=== PATIENT | female | born 1975 | race Caucasian/White ===

== ENCOUNTER 2017-12-24 22:32 | Observation (INO) ==
--- NOTE | 2017-12-24 23:14 | Emergency Department Note ---
Disposition Clinical Impression: Abscess of skin or subcutaneous tissue Qualifiers: Site of cutaneous abscess: extremity Site of cutaneous abscess of extremity: axilla Laterality: left Qualified Code(s): L02.412 - Cutaneous abscess of left axilla Disposition: Admitted As Inpatient Condition: Undetermined Skin/Abscess/FB HPI Chief complaint: ED Skin/Abscess/Foreign Body Stated complaint: Abscess L Arm Pit Time Seen by Provider: 12/24/17 22:38 Source: patient Mode of arrival: ambulatory Limitations: no limitations Nursing Notes Reviewed: Yes Vital Signs Reviewed: Yes HPI Narrative: 42-year-old patient with a history of IV drug use, multiple MRSA abscesses presents to the emergency department for evaluation of abscesses to her left axillary area. Patient states the abscesses of been there for about a week. She denies fevers but states she does get chills and gets covered in sweat. She denies shortness of breath, dyspnea, nausea, vomiting, diarrhea, constipation. She has a history of abscesses and has been seen many times most recently she had one on her left inner thigh that she drained herself due to not having insurance and then had one appear on her left intergluteal fold that she also had to drain herself due to not having insurance. She complains that it she thinks she may have an infection up in her vaginal cavity as whenever she has sick she states the smell is horrific and smells like drainage that comes from her wounds. Patient longer uses IV drugs. Noncontributory medical history otherwise. Pt Subjective Complaint: abscess/boil Onset (ago): week(s) Tetanus Up to Date: unsure Location: LUE Severity: moderate Severity scale (1-10): 5 Quality: aching Consistency: intermittent Improves with: none Worsens with: none Context: IVDA (Prior history of) Associated symptoms: Reports: denies other symptoms Treatments prior to arrival: none Previous Rx's Medication Instructions Recorded Ciprofloxacin [Cipro] 500 mg PO BID #14 tablet 06/21/17 Fluconazole [Diflucan] 150 mg PO DAILY #1 tab 06/21/17 Ciprofloxacin [Cipro] 500 mg PO BID #14 tablet 10/26/17 HYDROcodone/Acet 5/325 mg [[place] 1 tab PO Q6H PRN #10 tab 10/26/17 5-325 mg] metroNIDAZOLE [Flagyl] 500 mg PO TID #21 tablet 10/26/17 Allergies Allergy/AdvReac Type Severity Reaction Status Date / Time No Known Allergies Allergy Verified 10/25/17 22:18 All systems ED: reviewed and negative except as stated. Review of Systems: As Per HPI Constitutional: Reports: as per HPI, chills. Denies: fever, weakness Cardiovascular: Denies: chest pain, palpitations, edema, syncope Respiratory: Denies: cough, dyspnea, wheezes, stridor Gastrointestinal: Denies: abdominal pain, nausea, vomiting, diarrhea Musculoskeletal: Denies: joint swelling Integumentary: Reports: other (Multiple abscesses in various stages of healing) Neurological: Denies: headache, weakness, numbness, paresthesias Past Medical History - Past Medical History Attestation: Yes The following information was validated with the patient. Source: patient Medical history: Reports: kidney stones, other (True MRSA cultures and abscesses ) Psychiatric history: Reports: no psych history [employer]TER history: Reports: bilateral tubal ligation - Social History Smoking Status: Current every day smoker Smokeless Tobacco Status: No Alcohol use: Reports: none Drug use: Reports: marijuana, IV Drug Use (History of) Physical Exam - General Limitations: no limitations General appearance: alert, in no apparent distress - Head Head exam: atraumatic, normocephalic, normal inspection - ENT ENT exam: normal exam, normal oropharynx, mucous membranes moist - Neck Neck exam: Present: normal inspection, full ROM, trachea midline - Chest Chest inspection: Present: normal inspection, symmetric chest wall rise - Respiratory Respiratory exam: Present: normal lung sounds bilaterally - Cardiovascular Cardiovascular exam: Present: regular rate, normal rhythm, normal heart sounds - Abdominal Exam Abdominal exam: Present: soft, Non-Tender. Absent: tenderness, distention, guarding, rebound, rigidity - Extremities Exam Extremities exam: Present: normal inspection, full ROM. Absent: tenderness, pedal edema - Expanded Lower Extremity Exam Gait: observed and normal - Back Exam Back exam: Present: normal inspection, full ROM. Absent: tenderness - Neurological Exam Neurological exam: Present: alert, oriented X3 - Psychiatric Psychiatric exam: Present: normal affect, normal mood - Skin Skin exam: Present: other (Left axilla with 4 varying size indurated erythemic areas without drainage. Areas are painful to touch, warm to touch. Right and her gluteal fold with healing abscess that is scabbed with small amount of induration and erythema. Multiple areas of lesions in various stages of healing.) Course Course Narrative: 42-year-old patient with a history of IV drug use, multiple MRSA abscesses presents to the emergency department for evaluation of abscesses to her left axillary area. Patient states the abscesses of been there for about a week. She denies fevers but states she does get chills and gets covered in sweat. She denies shortness of breath, dyspnea, nausea, vomiting, diarrhea, constipation. She has a history of abscesses and has been seen many times most recently she had one on her left inner thigh that she drained herself due to not having insurance and then had one appear on her left intergluteal fold that she also had to drain herself due to not having insurance. She complains that it she thinks she may have an infection up in her vaginal cavity as whenever she has sick she states the smell is horrific and smells like drainage that comes from her wounds. Patient longer uses IV drugs. Noncontributory medical history otherwise. Left axilla with 4 varying size indurated erythemic areas without drainage. Areas are painful to touch, warm to touch. Right and her gluteal fold with healing abscess that is scabbed with small amount of induration and erythema. Multiple areas of lesions in various stages of healing. Rest of exam unremarkable. We will obtain basic labs as well as blood cultures and plan to admit for IV antibiotics, would be unable to I&D abscesses at this time. She will need general surgery as involvement is so extensive. Concern is for widespread involvement and failure of outpatient treatment could lead to harm patient as well as worsening of condition. Patient agrees with plan of care. We will wait results of page hospitalist - Reevaluation(s) Reevaluation #1: Labs without evidence of leukocytosis or systemic involvement. CT scan of abscesses ordered frantically for admission to Hospital services and a general surgery consullt. We started empiric vancomycin after blood cultures were drawn. Spoke with hospitalist is agreeable to take the patient. [place] the patient at this time under the care of the hospitalist team Time: 01:30 Vital Signs Temperature 97.8 F 12/24/17 22:34 Pulse Rate 80 12/24/17 22:34 Respiratory Rate 16 12/24/17 22:34 Blood Pressure 144/96 12/24/17 22:34 O2 Sat by Pulse Oximetry 100 12/24/17 22:34 Temperature 97.8 F 12/24/17 22:34 Pulse Rate 80 12/24/17 22:34 Respiratory Rate 16 12/24/17 22:34 Blood Pressure 144/96 12/24/17 22:34 O2 Sat by Pulse Oximetry 100 12/24/17 22:34 Oxygen Delivery Oxygen Delivery Room Air Skin/Abscess/Foreign Body - Lab Data Result diagrams: 12/24/17 23:23 12/24/17 23:23 Lab Results 12/24/17 12/24/17 Range/Units 23:23 23:23 WBC 8.8 (4.3-11.1) K/mcL RBC 4.07 (3.82-4.97) M/mcL Hgb 13.3 (11.5-15.4) g/dL Hct 38.9 (35.3-44.9) % MCV 95.6 (83.0-100.0) fL MCH 32.7 (28.0-33.3) pg MCHC 34.2 (31.6-35.5) g/dL RDW 12.8 (11.5-14.5) % Plt Count 241 (140-400) K/mcL MPV 9.9 (9.4-12.4) fL Immature Gran % 0.2 (0-4) % Seg Neutrophils % 57.9 % Lymphocytes % 30.6 % Monocytes % 10.2 % Eosinophils % 0.8 % Basophils % 0.3 % Neutrophils # 5.1 (1.6-8.9) K/mcL Lymphocytes # 2.7 (0.6-4.6) K/mcL Monocytes # 0.9 (0.0-1.3) K/mcL Eosinophils # 0.1 (0.0-0.6) K/mcL Basophils # 0.0 (0.0-0.2) K/mcL Sodium 139 (136-145) mEq/L Potassium 4.1 (3.5-5.1) mEq/L Chloride 107 (98-107) mEq/L Carbon Dioxide 23 (23-29) mEq/L BUN 16 (6-20) mg/dL Creatinine 0.51 L (0.60-1.20) mg/dL Est GFR ( Amer) > 60 (> 60) Est GFR (Non-Af Amer) > 60 (> 60) BUN/Creatinine Ratio 31 H (6-26) Glucose 87 (70-105) mg/dL Calculated Osmolality 289 (280-300) Calcium 9.1 (8.6-10.3) mg/dL
[2017-12-24] MEDS ORDERED: Lidocaine 1% 20 ML MDV INFILT ONE (23:15)
[2017-12-24 23:33] LABS: Basophils % 0.3 %; Eosinophils # 0.1 K/mcL (0.0-0.6); Eosinophils % 0.8 %; Hematocrit 38.9 % (35.3-44.9); Hemoglobin 13.3 g/dL (11.5-15.4); Immature Granulocytes % 0.2 % (0-4); Lymphocytes # 2.7 K/mcL (0.6-4.6); Lymphocytes % 30.6 %; Mean Corpuscular HGB Conc 34.2 g/dL (31.6-35.5); Mean Corpuscular Hemoglobin 32.7 pg (28.0-33.3); Mean Corpuscular Volume 95.6 fL (83.0-100.0); Mean Platelet Volume 9.9 fL (9.4-12.4); Monocytes # 0.9 K/mcL (0.0-1.3); Monocytes % 10.2 %; Neutrophils # 5.1 K/mcL (1.6-8.9); Platelet Count 241 K/mcL (140-400); Red Blood Count 4.07 M/mcL (3.82-4.97); Red Cell Distribution Width 12.8 % (11.5-14.5); Segmented Neutrophils % 57.9 %
[2017-12-25] MEDS ORDERED: Ketorolac 30 MG/ML VIAL IVP ONE (00:11)
[2017-12-25 00:32] LABS: BUN/Creatinine Ratio 31 (6-26); Blood Urea Nitrogen 16 mg/dL (6-20); Calcium 9.1 mg/dL (8.6-10.3); Carbon Dioxide 23 mEq/L (23-29); Chloride 107 mEq/L (98-107); Glucose 87 mg/dL (70-105); Osmolality,Calculated 289 (280-300); Potassium 4.1 mEq/L (3.5-5.1); Sodium 139 mEq/L (136-145); eGFR For African Americans > 60 (> 60); eGFR For Non-African Americans > 60 (> 60)
[2017-12-25] MEDS ORDERED: Vancomycin (wt based) 1,000 MG VIAL IVPB SCH (01:00)
[2017-12-25] MEDS ORDERED: Acetaminophen 325 MG TABLET PO PRN (02:01)
[2017-12-25] MEDS ORDERED: Naloxone 0.4 MG/ML INJ IVP PRN (02:01)
[2017-12-25] MEDS ORDERED: Piperacillin/Tazobactam 3.375 GM in 0.9 % Sodium Chloride Mini Bag 100 ML IVPB SCH ×2 (02:09→14:00)
--- NOTE | 2017-12-25 02:16 | Internal Med History&Physical ---
Date of Encounter: 12/25/17 Time of Encounter: 01:30 Assessment and Plan (1) Abscess of skin or subcutaneous tissue Current visit: Yes Status: Acute Abscess located left axilla, with no apparent involvement in the joint. Full range of motion of the left shoulder and left upper extremity. No elevation of white count or fevers at this time. Labs unremarkable. No evidence of systemic illness. CT of the shoulder shows a large complex left axillary abscess extending into the medial upper arm. Normal alignment with no significant change in the joint. We will continue vancomycin for MRSA coverage. Due to the location of the abscess, will add Zosyn at this time for anaerobic coverage. Will make patient NPO until further evaluation. Consult general surgery for further evaluation - this is a non-emergent consult , please call the on-call general surgeon in the morning. Qualifiers: Site of cutaneous abscess: extremity Site of cutaneous abscess of extremity : axilla Laterality: left Qualified Code(s): L02.412 - Cutaneous abscess of left axilla (2) DVT prophylaxis Current visit: Yes Status: Acute SCDs. No anticoagulation at this time for potential I&D/surgery Internal Medicine - H&P: HPI Chief complaint: Skin abscess Admitted From: Emergency Dept History of present illness: Ms. Holm is a 42 year old female with PMH of previous IVDU and multiple MRSA abscesses, presented to the ED with concerns of a left axillary abscess. It has progressively worsening for the past week. There is an achy, intermittent pain, and there is swelling, warmth, and erythema in the area. She states that it initially began as a very small pimple-like lesion, and she squeezed to try to drain it. She states that it seemed to "pop" but did not drain externally. Associated symptoms include chills. She denies fevers, difficulty in range of motion of her shoulder, swelling extending distally in to the arm, weakness, numbness, tingling. She denies dyspnea, cough, chest pain , abdominal pain, nausea, vomiting, change in bowels, dysuria, or leg pain/ swelling. She reports that she has had several abscesses in her gluteal region and lower extremity in the past. She does reports that when she is on her period, she will get a vaginal oder, similar to the smell when the abscess drains. However she states this is not currently happening. Denies vaginal bleeding, vaginal discharge, or dyspareunia. She denies any recent IV drug abuse. Past Med Surg Social Fam HX - Past Medical History Medical history: kidney stones, other (True MRSA cultures and abscesses) Psychiatric history: no psych history - Social History Smoking Status: Current every day smoker Packs per day: 1 Smokeless Tobacco Status: No Alcohol use: none Drug use: marijuana, IV Drug Use (History of) - Family History Maternal Grandmother Living Status: Hx Family Cancer: Yes (pancreatic) Internal Medicine - H&P: Meds Ciprofloxacin [Cipro] 500 mg PO BID #14 tablet 06/21/17 [Rx] Fluconazole [Diflucan] 150 mg PO DAILY #1 tab 06/21/17 [Rx] Ciprofloxacin [Cipro] 500 mg PO BID #14 tablet 10/26/17 [Rx] HYDROcodone/Acet 5/325 mg [[place] 5-325 mg] 1 tab PO Q6H PRN #10 tab 10/26/17 [Rx ] metroNIDAZOLE [Flagyl] 500 mg PO TID #21 tablet 10/26/17 [Rx] 3 Allergy/AdvReac Type Severity Reaction Status Date / Time No Known Allergies Allergy Verified 10/25/17 22:18 All Systems PM: A 10-system review of systems was performed and is negative for pertinent findings except as documented above in the HPI. - Constitutional Vitals: Temp Pulse Resp BP Pulse Ox 97.8 F 80 16 144/96 100 12/24/17 22:34 12/24/17 22:34 12/24/17 22:34 12/24/17 22:34 12/24/17 22:34 General appearance: Present: A&O X 3, no acute distress - Head Head exam: Present: atraumatic, normocephalic - Eye Eye exam: Present: EOMI, conjuntiva pink, sclera anicteric - Neck Neck exam general surgery: Present: supple, trachea midline. Absent: lymphadenopathy - Respiratory Respiratory exam: Present: CTAB. Absent: accessory muscle use, rales, rhonchi, wheezes - Cardiovascular Cardiovascular exam: Present: RRR, +S1, +S2. Absent: diastolic murmur, systolic murmur - GI/Abdominal GI/Abdominal exam: Present: normal bowel sounds, soft, no peritoneal signs. Absent: distended, tenderness - Extremities Exam Extremities exam: Present: full ROM, tenderness (Tenderness to her abscess site , but not in the shoulder joint), warm, radial pulses palpable and symmetrical. Absent: calf tenderness, cyanotic, joint swelling, pedal edema - Neurological Exam Neurological exam: Present: CN II-XII intact, oriented X3, no focal deficits. Absent: facial droop, speech deficit - Skin Skin exam: Present: dry, erythema (3 erythematous, warm, swollen areas consistent with appearance of abscesses in left axilla), intact Internal Med - H&P Results - Labs CBC & Chem 7: 12/24/17 23:23 12/24/17 23:23
[2017-12-25] MEDS: 0.9 % Sodium Chloride 1,000 ML IVC SCH ×2 (02:31→17:27)
[2017-12-25] MEDS ORDERED: *HR* HYDROcodone/Acet 5/325 mg TABLET PO PRN (02:44)
--- NOTE | 2017-12-25 06:22 | Emergency Department Note ---
Attestation Statement - Attestation Attestation: I, Ayaz Sears MD, personally evaluated this patient and discussed their management with the midlevel provicer, PAC/TISSUE TECHNICIAN. I reviewed the midlevel provider 's note and agree with the documented findings, medical decision making, and plan of care. 42-year-old female presents to the emergency department with a complaint of an abscess to the left axilla which started about one week prior to arrival. Patient states that she tried to squeeze it and it just seemed to spread. She denies any fever but has had some chills. She complains of severe pain and states that the pain and redness and swelling are just getting progressively worse. On examination patient is a well-developed well-nourished well-appearing female in no acute distress. She is alert and oriented 3. There is no cyanosis or diaphoresis. Breath sounds are clear and equal bilaterally. Heart regular rate and rhythm. Patient has a large abscess to the left axilla extending down onto the medial left upper arm. There is marked swelling and erythema with marked tenderness to palpation. No open or draining areas. Neurovascular function intact distally. Labs reviewed and unremarkable. CT of the left shoulder shows large complex left axillary abscess extending into the medial upper arm. The hospitalist, Dr. Burton, was consulted and accepted admission of the patient. Critical Care Time Critical Care Time: No
[2017-12-25 06:56] LABS: Prothrombin Time 10.3 Seconds (9.4-12.1)
[2017-12-25 06:59] LABS: Activated Partial Thrombo Time 26.5 Seconds (26.0-36.0)
[2017-12-25] MEDS ORDERED: Lidocaine Jelly 6ml 1 APPL/6 ML JEL.PF.APP TP ONE (09:16)
[2017-12-25] MEDS ORDERED: Acetaminophen IV 1,000 MG/100 ML INFUS..BTL IVPB STA (09:20)
[2017-12-25] MEDS ORDERED: Lidocaine 1% 20 ML MDV INFILT ONE (09:22)
--- NOTE | 2017-12-25 09:29 | General Surgery Consult Note ---
<Elodia Thurston L - Last Filed: 12/25/17 11:46> Date of Encounter: 12/25/17 Time of Encounter: 09:15 Assessment and Plan (1) Abscess of skin or subcutaneous tissue Current Visit: Yes Status: Acute Bedside I&D. See procedure section for details. Okay to eat from a surgical perspective. IV antibiotics and clinical course per primary team. May change outer dressing as needed. Do not remove packing. Further wound care orders pending reevaluation tomorrow a.m. Will give toradol x2 for discomfort acutely. Continuation of discomfort management per primary team. Recommend avoidance of narcotics if possible given her IV drug abuse history. Qualifiers: Site of cutaneous abscess: extremity Site of cutaneous abscess of extremity : axilla Laterality: left Qualified Code(s): L02.412 - Cutaneous abscess of left axilla History of Present Illness Consult date: 12/25/17 (Mignon Rivera) Reason for consult: other (Left axillary abscess) Requesting physician: Wolfgang Parsons History of present illness: Khushbu is a 42-year-old female with a past medical history of IV drug abuse (reports last injection approximately 9 months ago), multiple abscesses positive for MR , hepatitis C, cigarette smoking, marijuana smoking, denies alcohol use, past surgical history includes incision and drainage of foot abscess. She presented to the emergency department on 12/24/2017 for complaints of a one-week history of left underarm pain, redness, swelling, similar to her previous abscess. She states she had the same abscess on her left entered by approximately one month ago that she drained yourself due to not having any insurance, she then developed infection in her vaginal cavity which she states smelled like the drainage coming from her wounds. Notably in the D her examination included gluteal fold with a healing abscess that was scabbed, multiple areas of lesions in various stages of healing throughout her body. She denies fever, chills, headache, dizziness, chest pain, shortness of breath, syncope, near syncope, generalized weakness, burning with urination, changes in bowel habits, constipation, diarrhea, nausea, vomiting. She endorses left axillary discomfort and skin changes as previously described. Surgery has been asked to evaluate this patient for recommendations regarding left axillary abscess. Past Med Surg Social Fam HX - Past Medical History Medical history: kidney stones, other (True MRSA cultures and abscesses) Psychiatric history: no psych history - Past Surgical History Surgical History: other (Incision and drainage; Left oopherectomy) - Social History Smoking Status: Current every day smoker Packs per day: 1 Smokeless Tobacco Status: No Alcohol use: none Drug use: marijuana, IV Drug Use (History of) - Family History Maternal Grandmother Living Status: Hx Family Cancer: Yes (pancreatic) Medications and Allergies No Known Home Drugs 12/25/17 [History] 3 Allergy/AdvReac Type Severity Reaction Status Date / Time No Known Allergies Allergy Verified 10/25/17 22:18 Review of Systems All systems PM: reviewed and no additional remarkable complaints except as stated All systems PM: The remainder of the systems were reviewed and are negative General Surgery Exam Initial Vital Signs Temp Pulse Resp BP Pulse Ox 97.8 F 80 16 144/96 100 12/24/17 22:34 12/24/17 22:34 12/24/17 22:34 12/24/17 22:34 12/24/17 22:34 VITAL SIGNS: Reviewed. See [facility] GENERAL: In no apparent distress. HEENT: [Normocephalic, atraumatic, pupils are equal and reactive, extraocular motions intact, oropharynx is pink and moist, there is no neck adenopathy or JVD noted.] CHEST/RESPIRATORY: The thorax is free from signs of trauma. Lung sounds: [clear to auscultation, normal respiratory effort] CARDIAC: [Rular rate and rhythm. Normal S1 and S2, without murmurs, gallops, or rubs.] VASCULAR: [No Edema. 2+ peripheral pulses.] ABDOMEN: [ ] MUSCULOSKELETAL: [Good range of motion of all major joints. Extremities without clubbing, cyanosis or edema.] NEUROLOGIC EXAM: [Alert and oriented x 3. Speech normal. Follows commands.] PSYCHIATRIC: [Mood normal.] SKIN: [No rash or lesions.] Exam Initial Vital Signs Temp Pulse Resp BP Pulse Ox 97.8 F 80 16 144/96 100 12/24/17 22:34 12/24/17 22:34 12/24/17 22:34 12/24/17 22:34 12/24/17 22:34 Results - Labs 12/24/17 23:23 12/24/17 23:23 Abnormal lab results Creatinine 0.51 mg/dL (0.60-1.20) L 12/24/17 23:23 BUN/Creatinine Ratio 31 (6-26) H 12/24/17 23:23 All other labs normal. Procedures: General Surgery - Abscess I/D Additional comments: ABSCESS INCISION AND DRAINAGE NOTE INDICATION: Abscess manifested as a tender, swollen fluctuant mass in the superficial subcutaneous tissue. INFORMED CONSENT: The risks and benefits of the procedure including incomplete drainage, scarring, infection and bleeding was explained and the patient verbalized their understanding and wished to proceed with the procedure. PROCEDURE: The area of greatest fluctuance was identified, prepped, and draped in a sterile fashion. Local anesthetic (10 MLs of 2% lidocaine) was introduced subcutaneously over the area of greatest fluctuance. A linear incision was then made over the area of greatest fluctuance, with immediate return of a large amount of purulent material. The wound was explored with a hemostat to break up loculations and irrigated with 40MLs saline solution. Once the wound was explored, cleaned, and irrigated, 1/4 inch iodoform gauze packing was placed loosely in the wound. A dressing was then applied. FINDINGS: Purulent drainage. EBL: <10 mL COMPLICATIONS: None. Signature: Elodia Thurston APRN, [employer] Consult Discharge Plan - Plan Referrals: Alyssa Lehman MD [Primary Care Provider] - <Camden Rivera M - Last Filed: 12/26/17 06:53> Date of Encounter: 12/25/17 Review of Systems All systems PM: The remainder of the systems were reviewed and are negative General Surgery Exam Initial Vital Signs Temp Pulse Resp BP Pulse Ox 97.8 F 80 16 144/96 100 12/24/17 22:34 12/24/17 22:34 12/24/17 22:34 12/24/17 22:34 12/24/17 22:34 Exam Initial Vital Signs Temp Pulse Resp BP Pulse Ox 97.8 F 80 16 144/96 100 12/24/17 22:34 12/24/17 22:34 12/24/17 22:34 12/24/17 22:34 12/24/17 22:34 Results - Labs 12/24/17 23:23 12/24/17 23:23 Abnormal lab results Creatinine 0.51 mg/dL (0.60-1.20) L 12/24/17 23:23 BUN/Creatinine Ratio 31 (6-26) H 12/24/17 23:23 POC Glucose 96 (58-89) H 12/25/17 11:10 All other labs normal. - Attending Attestation I have personally performed a face to face evaluation on this patient. I have reviewed and agree with the care plan. History and Exam by me shows: Review the above assessment and evaluation with an is practitioner as well as the incision and drainage procedure and I agree with the above plan. Packing in place and I think with continued usage of the patient's upper extremity that the area and swollen will continue to decrease. Will start dressing changes tomorrow. Continue IV antibiotics.
[2017-12-25] MEDS ORDERED: Tdap (ADACEL) Vaccine 0.5 ML IM ONE (11:53)
[2017-12-25] MEDS: Ketorolac 15 MG/ML VIAL IVP SCH ×2 (12:26→17:27)
--- NOTE | 2017-12-25 18:02 | Event Note ---
Date of Encounter: 12/25/17 Time of Encounter: 11:00 Patient evaluated by nocturnalist earlier this morning and also by myself Patient is a 42-year-old female with past medical history significant for IV drug abuse and multiple MRSA abscesses with left axilla abscess which was I and D by general surgery on 12/25/17. Will continue IV vancomycin and Zosyn
[2017-12-25] MEDS: Piperacillin/Tazobactam 3.375 GM in 0.9 % Sodium Chloride Mini Bag 100 ML IVPB SCH (21:29)
[2017-12-26] MEDS: Ibuprofen 400 MG TABLET PO PRN ×4 (04:16→23:40)
[2017-12-26] MEDS: Piperacillin/Tazobactam 3.375 GM in 0.9 % Sodium Chloride Mini Bag 100 ML IVPB SCH (05:27)
[2017-12-26] MEDS: 0.9 % Sodium Chloride 1,000 ML IVC SCH (05:32)
--- NOTE | 2017-12-26 11:11 | General Surgery Progress Note ---
Date of Encounter: 12/26/17 Time of Encounter: 10:45 - Assessment and Plan (1) Abscess of skin or subcutaneous tissue Current Visit: Yes Status: Acute Bedside I&D 12/25/2017. Gram stain positive for gram-positive cocci. Noted recommendations per primary team to continue vancomycin at this time. Final culture results pending. Patient states her roommate will be able to complete her packing at home. She states her remain will be here tomorrow and will be able to be observed placing the packing prior to discharge. She further states if her roommate is unable to complete the packing she is accepting of home health. A referral has already been placed to case management for discharge needs regarding wound care. She states her discomfort is well-controlled with ibuprofen. She requests to be permitted to take a shower prior to replacing packing today. Plan: -Shower daily with chlorhexadine soap for 6 weeks -daily wound care as directed below (continue iodoform packing on 12/26 and ) -ATBX per primary team -Recommend consideration for MRSA eradication therapy per primary team -D/c plan information is placed and supplies provided to the patient Packing by roommate must be observed by bedside RN prior to d/c -Surgery will sign off. Thank you for allowing us to participate in Ms. Mihai cheatham. Daily Wound Care: Remove dressing and packing. Shower with antibacterial/ chlorhexadine soap. Repack with 1/4 inch plain gauze. Cover with a dry dressing. Tape to secure. Qualifiers: Site of cutaneous abscess: extremity Site of cutaneous abscess of extremity : axilla Laterality: left Qualified Code(s): L02.412 - Cutaneous abscess of left axilla Subjective Patient reports: no new complaints, feels better, still having pain, pain is less, tolerating a regular diet, flatus, bowel movement, afebrile Objective Vital Signs - Last 8 Hours Temp Pulse Resp BP Pulse Ox 12/26/17 07:04 98.2 F 60 16 112/69 97 12/26/17 04:07 98.3 F 61 15 119/75 96 Intake and Output 12/25/17 12/26/17 12/26/17 23:59 07:59 15:59 Intake Total 1580 / 1580 1350 / 1350 240 / 240 Output Total 0 / 0 Balance 1580 / 1580 1350 / 1350 240 / 240 Intake: IV Fluids 1100 / 1100 1350 / 1350 0.9 % Sodium Chloride 1,000 ML 1000 / 1000 1000 / 1000 @ 75 mls/hr IVC .[id number] [facility] Rx #:[id number] Zosyn 3.375 GM In 0.9 % Sodium 100 / 100 100 / 100 Chloride (Mini-Bag +) 100 ML @ 25 mls/hr IVPB Q8H [facility] Rx#: [id number] Vancocin 1,000 MG In 0.9 % 250 / 250 Sodium Chloride 250 ML @ 167 mls/hr IVPB Q12H [facility] Rx#: [id number] Oral 480 / 480 0 / 0 240 / 240 Output: Urine 0 / 0 Other: Meal Dinner Breakfast Percent of Meal Consumed 100% 100% # Voids 1 1 # Bowel Movements 0 Weight 65.7 kg Patient Weight 12/26/17 23:59 Weight 65.7 kg - General physical appearance no distress, moderate pain - Eyes normal ocular movement - ENT atraumatic, normocephalic - Neck Neck exam: trachea midline, no venous distension - Respiratory normal expansion, normal respiratory effort, clear to auscultation - Cardiovascular Cardiovascular exam: Present: RRR - Abdomen Abdomen: Present: bowel sounds present, soft, non tender - Incision Incision: Present: open (Left axillary I&D site with granulation tissue. Surrounding errythema significantly improved.) - Integumentary other - Neurologic normal coordination, normal sensation - Musculoskeletal normal posture - Psychiatric oriented to time, oriented to person, oriented to place, speech is normal, memory intact - Labs 12/24/17 23:23 12/24/17 23:23 Consult Discharge Plan - Plan Instructions: Methicillin Resistant Staphylococcus Aureus (GEN) Additional Instructions: Daily Wound Care: Remove dressing and packing. Shower with antibacterial/ chlorhexadine soap. Repack with 1/4 inch plain gauze. Cover with a dry dressing. Tape to secure. Referrals: Alyssa Lehman MD [Primary Care Provider] - Elodia Thurston CNP [Advanced Practice Nurse] - 01/02/18 2:00 pm
--- NOTE | 2017-12-26 15:25 | Internal Med Progress Note ---
Date of Encounter: 12/26/17 Time of Encounter: 11:30 - Assessment and plan (1) Abscess of skin or subcutaneous tissue Current Visit: Yes Status: Acute Assessment and plan: CT left shoulder showed large complex left axillary abscess, extending into the medial upper arm. Continue IV vancomycin, hold Zosyn. Preliminary wound culture grows staph aureus. Surgery on board, status post incision and drainage on 12/25/17; continue local wound care per surgery recommendations. Pain control with when necessary Tylenol and IV Toradol. Avoid narcotics; Qualifiers: Site of cutaneous abscess: extremity Site of cutaneous abscess of extremity : axilla Laterality: left Qualified Code(s): L02.412 - Cutaneous abscess of left axilla (2) IVDU (intravenous drug user) Current Visit: Yes Status: Inactive Assessment and plan: reports she has not used since last summer; in remission; - Subjective Interval history: Reports severe pain in left upper arm and axillary area due to recently receiving packing. No fever, chills, nausea, vomiting or diarrhea. Reports improved swelling and redness; - Constitutional Vitals: Temp Pulse Resp BP Pulse Ox 98.1 F 66 16 142/96 97 12/26/17 14:40 12/26/17 14:40 12/26/17 14:40 12/26/17 14:40 12/26/17 14:40 General appearance: Present: mild distress, A&O X 3, answers questions appropriately - Respiratory Respiratory exam: Present: CTAB. Absent: accessory muscle use, rales, rhonchi, wheezes - Cardiovascular Cardiovascular exam: Present: RRR, +S1, +S2. Absent: diastolic murmur, gallop, rubs, systolic murmur - GI/Abdominal GI/Abdominal exam: Present: normal bowel sounds, soft, no peritoneal signs. Absent: distended, tenderness - Extremities Exam Extremities exam: Present: full ROM, warm, radial pulses palpable and symmetrical. Absent: calf tenderness, cyanotic, pedal edema Additional comments: left medial proximal arm with I&D and iodoform packing; dry and clean; tenderness+; improved erythema and edema compared to her previous photographs on her phone; Internal Medicine: Result - Labs CBC & Chem 7: 12/24/17 23:23 12/24/17 23:23 - ABG Interpretation ABG results: PT/INR, D-dimer PT 10.3 Seconds (9.4-12.1) 12/25/17 05:59 Consult Discharge Plan - Plan Instructions: Methicillin Resistant Staphylococcus Aureus (GEN) Additional Instructions: Daily Wound Care: Remove dressing and packing. Shower with antibacterial/ chlorhexadine soap. Repack with 1/4 inch plain gauze. Cover with a dry dressing. Tape to secure. Referrals: Alyssa Lehman MD [Primary Care Provider] - Elodia Thurston CNP [Advanced Practice Nurse] - 01/02/18 2:00 pm
[2017-12-27] MEDS: Ibuprofen 400 MG TABLET PO PRN ×2 (08:55→16:04)
[2017-12-27] MEDS ORDERED: Sulfamethoxazole/Trimeth DS 1 EACH TABLET PO SCH (10:30)
--- NOTE | 2017-12-27 11:33 | Discharge Summary ---
Orders not resulted at time of discharge: Pending orders 12/25/17 14:00 Culture,Anaerobic [RM] Stat Date of Encounter: 12/27/17 Time of Encounter: 10:35 - Discharge Diagnosis (1) Abscess of skin or subcutaneous tissue Priority: Primary Status: Acute Qualifiers: Site of cutaneous abscess: extremity Site of cutaneous abscess of extremity : axilla Laterality: left Qualified Code(s): L02.412 - Cutaneous abscess of left axilla Hospital course: Ms. Holm is a 42 year old female with remote history of IV drug abuse and multiple skin abscesses, who presents with complaints of pain and swelling in left axillary area. She was noted to have indurated swellings in the proximal medial arm. Left shoulder CT showed large complex left axillary abscess, extending into the medial upper arm. She was started on IV hydration and broad- spectrum IV antibiotics-vancomycin and Zosyn. Surgery was consulted and patient received bedside incision and drainage on December 25. Wound culture eventually grew MRSA. Local wound care recommendations with packing per surgery. Surrounding cellulitis around the abscess is almost resolved at this time. Patient is currently medically stable for discharge with oral antibiotics and surgery follow-up for wound check. Patient's roommate/friend will be learning appropriate wound care with gauze packing. Patient may require home health services if her friend cannot learn dressing changes. Discharge discussed with: patient - Time Spent with Patient Total time spent providing and/or coordinating discharge services: Greater than 30 minutes (45 min) - Discharge Medications Prescriptions: Sulfamethoxazole/Trimeth DS [Bactrim Ds] 1 each PO BID #14 tablet Home Medications: Acetaminophen [Tylenol] 650 mg PO Q6HR PRN tablet 12/27/17 [Rx] Ibuprofen [Motrin] 400 mg PO Q6HR PRN tablet 12/27/17 [Rx] Sulfamethoxazole/Trimeth DS [Bactrim Ds] 1 each PO BID #14 tablet 12/27/17 [Rx] Allergies/Adverse Reactions: 3 Allergy/AdvReac Type Severity Reaction Status Date / Time No Known Allergies Allergy Verified 10/25/17 22:18 Date of admission: 12/25/17 01:21 Primary care physician: Alyssa Lehman Consults: 12/25/17 02:12 Consult to Surgery [CONS] Routine Consulting Provider: [facility] Reason for Consult: Abscess of left axillary region Call Completed: No 12/26/17 08:16 Consult to Case Management [CONS] Routine Comment: Needs packing at home. Home health vs family? Discharging clinician: Deanne Orlando Anticipated date of discharge: 12/27/17 - Constitutional Vitals: Temp Pulse Resp BP Pulse Ox 98.6 F 73 16 119/67 96 12/27/17 07:34 12/27/17 07:34 12/27/17 07:34 12/27/17 07:34 12/27/17 07:34 General appearance: Present: A&O X 3, answers questions appropriately - Extremities Exam Extremities exam: Present: warm, radial pulses palpable and symmetrical. Absent : calf tenderness, cyanotic, pedal edema Additional comments: significant improvement in surrounding cellulitis in left proximal medial arm and axilla; packing and dry dressing intact; - Patient Status Disposition: Home, Self-Care Condition: Good Functional capacity at discharge: independent ambulation Overall status at discharge: patient is progressing back to baseline - Discharge Instructions Instructions: Methicillin Resistant Staphylococcus Aureus (GEN) Follow Up With: Alyssa Lehman MD [Primary Care Provider] - Elodia Thurston CNP [Advanced Practice Nurse] - 01/02/18 2:00 pm Forms: Inpatient Work/School Release Additional Instructions: Daily Wound Care: Remove dressing and packing. Shower with antibacterial/ chlorhexadine soap. Repack with 1/4 inch plain gauze. Cover with a dry dressing. Tape to secure. - Diet and Activity Activity: resume usual activities as tolerated (per Surgery recommendations) Diet: advance to your usual diet, regular diet
[2017-12-27 11:55] VITALS: BP 138/81
[2017-12-27] MEDS ORDERED: Aminoglycoside Consult 1 EACH MC ONE (16:09)
== END 2017-12-27 16:10 | disposition home or self-care (01) ==
LOC: EMEROO 22:32 → 3ANU 22:32 → SUATTDRO 12-25 01:21 → 3ANU 12-25 01:47
PROVIDERS: ADMIT Family Medicine; ATTEND Internal Medicine

== ENCOUNTER 2019-05-03 16:18 | Inpatient (IN) ==
[2019-05-03] MEDS ORDERED: Isovue-370 500 ML BOTTLE IVP ONE (16:44)
[2019-05-03] MEDS ORDERED: Piperacillin/Tazobactam 3.375 GM in 0.9 % Sodium Chloride Mini Bag 100 ML IVPB ONE (16:46)
--- NOTE | 2019-05-03 17:02 | Emergency Department Note ---
Disposition Clinical Impression: Cellulitis of left hand Disposition: Still a Patient Condition: Good Referrals: Alyssa Lehman MD [Primary Care Provider] - Forms: ED Satisfaction Letter Time of Disposition: 18:00 Extremity Problem HPI - General Chief complaint: ED Extremity Injury, Upper Stated complaint: cellulitis R hand Time Seen by Provider: 05/03/19 16:44 Source: patient Mode of arrival: ambulatory Limitations: no limitations - History of Present Illness HPI Narrative: Alert and oriented nontoxic-appearing 43-year-old female with an admitted history of IV drug use, last drug of choice was IV methamphetamine into the left hand presents for 3 days worth of progressively worsening left hand pain and swelling. She complains of generalized malaise as well. She denies any obvious fever, chills, nausea, or vomiting. Tetanus immunization status is up-to-date. She complains of moderate paresthesias of the ears of the left hand. Pt Subjective Complaint: joint swelling, joint pain Onset (ago): day(s) (3) Consistency: Worsening Injury Location: left, upper extremity Pain Scale: 8 Quality: aching, dull Radiation: proximal Improves with: nothing Worsens with: palpation, use Associated symptoms: Reports: other (Generalized malaise) - Related Data Previous Rx's Medication Instructions Recorded Azithromycin [Zithromax] 0 mg PO Q24H #6 tablet 09/13/18 Loratadine/Pseudophed (12 HR) 1 each PO BID PRN #30 tab.er.12h 09/13/18 [Claritin D (12HR)] Allergies Allergy/AdvReac Type Severity Reaction Status Date / Time No Known Allergies Allergy Verified 09/13/18 11:03 All systems ED: reviewed and negative except as stated. Review of Systems: As Per HPI Constitutional: Denies: fever, chills, weakness, weight change Eyes: Denies: eye pain, eye discharge, vision change ENT ED: Denies: ear pain, throat pain, dental pain, hearing loss, epistaxis, congestion, dysphagia Cardiovascular: Denies: chest pain, palpitations, dyspnea on exertion, edema, syncope Respiratory: Denies: cough, dyspnea, wheezes, hemoptysis, stridor Gastrointestinal: Denies: abdominal pain, nausea, vomiting, diarrhea, constipation, hematemesis, melena, hematochezia Genitourinary: Denies: dysuria, frequency, hematuria, discharge Musculoskeletal: Denies: back pain, neck pain, arthralgia, myalgia Integumentary: Reports: as per HPI, other (Left hand pain, redness, swelling). Denies: rash, abrasion, lesions Neurological: Denies: headache, weakness, numbness, paresthesias, confusion, abnormal gait, vertigo Psychiatric: Denies: anxiety, depression, suicidal thoughts, homicidal thoughts, auditory hallucinations, visual hallucinations Endocrine: Denies: fatigue Hematological/Lymphatic: Denies: easy bleeding, easy bruising Allergic/Immunologic: Denies: facial swelling, urticaria Past Medical History - Past Medical History Attestation: Yes The following information was validated with the patient. 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 Absent: conjunctival injection - ENT ENT exam: mucous membranes moist - Neck Neck exam: Present: normal inspection, full ROM - Chest Chest inspection: Present: normal inspection, symmetric chest wall rise - Expanded Upper Extremity Exam Arm exam: Present: normal inspection, full ROM Elbow exam: Present: normal inspection, full ROM Forearm/Wrist exam: Present: tenderness (Left wrist diffusely), swelling (Moderate soft tissue swelling noted, left wrist diffusely) Hand exam: Present: tenderness (Significant tenderness palpation, left hand diffusely), swelling (Significant soft tissue swelling noted of the left hand), erythema (Significant erythema that tracks proximally towards the left wrist. Palpable area of fluctuance over the area of the left fifth MCP joint. There is a small amount of purulent drainage noted.) Neuromotor exam: Abnorm: wrist extension (Due to pain), thumb opposition (Due to pain), fingers 2-5 abduction (Due to pain) Neurosensory exam: Normal: radial nerve, ulnar nerve Vascular exam: Normal: capillary refill, radial pulse, ulnar pulse - Neurological Exam Neurological exam: Present: alert, oriented X3, normal gait - Psychiatric Psychiatric exam: Present: normal affect, normal mood - Skin Skin exam: Present: warm, dry Course Course Narrative: Case discussed with Dr. Shirley. Dr. Shirley has had a [id number] evaluation with the patient. He agrees with the workup ordered. She will be given IV vancomycin and Zosyn after blood cultures are obtained. CBC, BMP, ESR, CRP, and lactate pending. We will get a CT with contrast of the left upper extremity to determine the extent of the patient's abscess/cellulitis. Afterwards, surgery will be consult, likely orthopedics given the location of the abscess. Care this patient will be transferred to LUISITO Zelaya due to mid- level shift change. Vital Signs Temperature 97.9 F 05/03/19 16:27 Pulse Rate 90 05/03/19 16:27 Respiratory Rate 16 05/03/19 16:27 Blood Pressure 141/88 05/03/19 16:27 O2 Sat by Pulse Oximetry 97 05/03/19 16:27 Temperature 97.9 F 05/03/19 16:54 Pulse Rate 90 05/03/19 16:54 Respiratory Rate 16 05/03/19 16:54 Blood Pressure 141/88 05/03/19 16:54 O2 Sat by Pulse Oximetry 97 05/03/19 16:54 Oxygen Delivery Oxygen Delivery Room Air Extremity Problem, Nontraumati - Medical Records Medical records reviewed: Yes I reviewed the patient's medical records. S.B.AJan - S.Rosalba.AJan Situation: Demographics, MOA Background: Presenting Complaint, Relevant PMH, Meds, & Allergies Assessment: Vital Signs, Course and respsone to treatment, Exam Concerns, Patient/Family Expectation, Pertinant Lab Results, Outstanding Labs Recommendation: Barrier(s) to disposition, Recommendation based on pending studies, treatments, or consults S.B.A.RNaomi Report Given to: LUISITO Zelaya Repor Time: 18:00
--- NOTE | 2019-05-03 17:30 | Emergency Department Note ---
Disposition Clinical Impression: Cellulitis of left hand, Hypokalemia Disposition: Admitted As Inpatient Condition: Good Referrals: Alyssa Lehman MD [Primary Care Provider] - Forms: ED Satisfaction Letter Time of Disposition: 21:14 General Adult HPI - General Chief complaint: ED Extremity Injury, Upper Stated complaint: cellulitis R hand Time Seen by Provider: 05/03/19 16:44 Source: patient Mode of arrival: ambulatory Limitations: no limitations - History of Present Illness Pain Scale: 8 - Related Data Previous Rx's Medication Instructions Recorded Azithromycin [Zithromax] 0 mg PO Q24H #6 tablet 09/13/18 Loratadine/Pseudophed (12 HR) 1 each PO BID PRN #30 tab.er.12h 09/13/18 [Claritin D (12HR)] Allergies Allergy/AdvReac Type Severity Reaction Status Date / Time No Known Allergies Allergy Verified 09/13/18 11:03 Constitutional: Denies: fever, chills, weakness, weight change Eyes: Denies: eye pain, eye discharge, vision change ENT ED: Denies: ear pain, throat pain, dental pain, hearing loss, epistaxis, c ongestion, dysphagia Cardiovascular: Denies: chest pain, palpitations, dyspnea on exertion, edema, syncope Respiratory: Denies: cough, dyspnea, wheezes, hemoptysis, stridor Gastrointestinal: Denies: abdominal pain, nausea, vomiting, diarrhea, constipation, hematemesis, melena, hematochezia Genitourinary: Denies: dysuria, frequency, hematuria, discharge Musculoskeletal: Denies: back pain, neck pain, arthralgia, myalgia Integumentary: Reports: as per HPI, other (Left hand pain, redness, swelling). 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 - Social History Smoking Status: Current every day smoker Smokeless Tobacco Status: No Alcohol use: Reports: none Drug use: Reports: marijuana, IV Drug Use Physical Exam - General Limitations: no limitations General appearance: alert, in no apparent distress Course Vital Signs Temperature 97.9 F 05/03/19 16:27 Pulse Rate 90 05/03/19 16:27 Respiratory Rate 16 05/03/19 16:27 Blood Pressure 141/88 05/03/19 16:27 O2 Sat by Pulse Oximetry 97 05/03/19 16:27 Temperature 97.9 F 05/03/19 16:54 Pulse Rate 90 05/03/19 16:54 Respiratory Rate 16 05/03/19 16:54 Blood Pressure 141/88 05/03/19 16:54 O2 Sat by Pulse Oximetry 97 05/03/19 16:54 Oxygen Delivery Oxygen Delivery Room Air Medical Decision Making - Lab Data Result diagrams: 05/03/19 17:49 05/03/19 17:49 Lab Results 05/03/19 05/03/19 05/03/19 Range/Units 17:49 17:49 17:49 WBC 11.4 H (4.3-11.1) K/mcL RBC 3.36 L (3.82-4.97) M/mcL Hgb 11.2 L (11.5-15.4) g/dL Hct 32.3 L (35.3-44.9) % MCV 96.1 (83.0-100.0) fL MCH 33.3 (28.0-33.3) pg MCHC 34.7 (31.6-35.5) g/dL RDW 13.2 (11.5-14.5) % Plt Count 199 (140-400) K/mcL MPV 9.7 (9.4-12.4) fL Immature Gran % 0.3 (0-4) % Seg Neutrophils % 73.4 % Lymphocytes % 15.8 % Monocytes % 9.7 % Eosinophils % 0.5 % Basophils % 0.3 % Neutrophils # 8.4 (1.6-8.9) K/mcL Lymphocytes # 1.8 (0.6-4.6) K/mcL Monocytes # 1.1 (0.0-1.3) K/mcL Eosinophils # 0.1 (0.0-0.6) K/mcL Basophils # 0.0 (0.0-0.2) K/mcL ESR 24 H (0-15) mm/hr Sodium 139 (136-145) mEq/L Potassium 2.9 L (3.5-5.1) mEq/L Chloride 108 H (98-107) mEq/L Carbon Dioxide 28 (23-29) mEq/L BUN 9 (6-20) mg/dL Creatinine 0.59 L (0.60-1.20) mg/dL Est GFR ( Amer) > 60 (> 60) Est GFR (Non-Af Amer) > 60 (> 60) BUN/Creatinine Ratio 15 (6-26) Glucose 76 (70-105) mg/dL Calculated Osmolality 285 (280-300) Lactic Acid (0.5-2.2) mmol/L Calcium 8.7 (8.6-10.3) mg/dL C-Reactive Protein 31 H (Less than 10) mg/L 05/03/19 Range/Units 17:49 WBC (4.3-11.1) K/mcL RBC (3.82-4.97) M/mcL Hgb (11.5-15.4) g/dL Hct (35.3-44.9) % MCV (83.0-100.0) fL MCH (28.0-33.3) pg MCHC (31.6-35.5) g/dL RDW (11.5-14.5) % Plt Count (140-400) K/mcL MPV (9.4-12.4) fL Immature Gran % (0-4) % Seg Neutrophils % % Lymphocytes % % Monocytes % % Eosinophils % % Basophils % % Neutrophils # (1.6-8.9) K/mcL Lymphocytes # (0.6-4.6) K/mcL Monocytes # (0.0-1.3) K/mcL Eosinophils # (0.0-0.6) K/mcL Basophils # (0.0-0.2) K/mcL ESR (0-15) mm/hr Sodium (136-145) mEq/L Potassium (3.5-5.1) mEq/L Chloride (98-107) mEq/L Carbon Dioxide (23-29) mEq/L BUN (6-20) mg/dL Creatinine (0.60-1.20) mg/dL Est GFR ( Amer) (> 60) Est GFR (Non-Af Amer) (> 60) BUN/Creatinine Ratio (6-26) Glucose (70-105) mg/dL Calculated Osmolality (280-300) Lactic Acid 1.2 (0.5-2.2) mmol/L Calcium (8.6-10.3) mg/dL C-Reactive Protein (Less than 10) mg/L Attestation Statement - Attestation Attestation: For this encounter, I have reviewed the EMBEDDED SOFTWARE ARCHITECT or PA documentation, treatment plan, and medical decision making; and I have had face to face time with this patient. [id number]-[id number] time provided Patient has left hand swelling. She admits to IV drug use. Cellulitis present. CT ordered by the nurse practitioner. Patient will require admission for parenteral antibiotics and planned orthopedic consultation
[2019-05-03] MEDS ORDERED: 0.9 % Sodium Chloride 1,000 ML IVC ONE (18:02)
[2019-05-03 18:03] LABS: Basophils % 0.3 %; Eosinophils # 0.1 K/mcL (0.0-0.6); Eosinophils % 0.5 %; Hematocrit 32.3 % (35.3-44.9); Hemoglobin 11.2 g/dL (11.5-15.4); Immature Granulocytes % 0.3 % (0-4); Lymphocytes # 1.8 K/mcL (0.6-4.6); Lymphocytes % 15.8 %; Mean Corpuscular HGB Conc 34.7 g/dL (31.6-35.5); Mean Corpuscular Hemoglobin 33.3 pg (28.0-33.3); Mean Corpuscular Volume 96.1 fL (83.0-100.0); Mean Platelet Volume 9.7 fL (9.4-12.4); Monocytes # 1.1 K/mcL (0.0-1.3); Monocytes % 9.7 %; Neutrophils # 8.4 K/mcL (1.6-8.9); Platelet Count 199 K/mcL (140-400); Red Blood Count 3.36 M/mcL (3.82-4.97); Red Cell Distribution Width 13.2 % (11.5-14.5); Segmented Neutrophils % 73.4 %; White Blood Count 11.4 K/mcL (4.3-11.1)
[2019-05-03 18:19] LABS: BUN/Creatinine Ratio 15 (6-26); Blood Urea Nitrogen 9 mg/dL (6-20); C-Reactive Protein 31 mg/L (Less than 10); Calcium 8.7 mg/dL (8.6-10.3); Carbon Dioxide 28 mEq/L (23-29); Chloride 108 mEq/L (98-107); Glucose 76 mg/dL (70-105); Osmolality,Calculated 285 (280-300); Potassium 2.9 mEq/L (3.5-5.1); Sodium 139 mEq/L (136-145); eGFR For African Americans > 60 (> 60); eGFR For Non-African Americans > 60 (> 60)
[2019-05-03] MEDS ORDERED: *HR* Nalbuphine 10 MG/ML AMPUL IV STA (18:25)
--- NOTE | 2019-05-03 18:32 | Emergency Department Note ---
Disposition Clinical Impression: Cellulitis of left hand, Hypokalemia Disposition: Admitted As Inpatient Condition: Good Referrals: Alyssa Lehman MD [Primary Care Provider] - Forms: ED Satisfaction Letter Time of Disposition: 20:31 General Adult HPI - General Chief complaint: ED Extremity Injury, Upper Stated complaint: cellulitis R hand Time Seen by Provider: 05/03/19 16:44 Source: patient Mode of arrival: ambulatory Limitations: no limitations Nursing Notes Reviewed: Yes Vital Signs Reviewed: Yes - History of Present Illness Pain Scale: 8 - Related Data Previous Rx's Medication Instructions Recorded Azithromycin [Zithromax] 0 mg PO Q24H #6 tablet 09/13/18 Loratadine/Pseudophed (12 HR) 1 each PO BID PRN #30 tab.er.[id number] 09/13/18 [Claritin D (12HR)] Allergies Allergy/AdvReac Type Severity Reaction Status Date / Time No Known Allergies Allergy Verified 09/13/18 11:03 Constitutional: Denies: fever, chills, weakness, weight change Eyes: Denies: eye pain, eye discharge, vision change ENT ED: Denies: ear pain, throat pain, dental pain, hearing loss, epistaxis, congestion, dysphagia Cardiovascular: Denies: chest pain, palpitations, dyspnea on exertion, edema, syncope Respiratory: Denies: cough, dyspnea, wheezes, hemoptysis, stridor Gastrointestinal: Denies: abdominal pain, nausea, vomiting, diarrhea, constipation, hematemesis, melena, hematochezia Genitourinary: Denies: dysuria, frequency, hematuria, discharge Musculoskeletal: Denies: back pain, neck pain, arthralgia, myalgia Integumentary: Reports: as per HPI, other (Left hand pain, redness, swelling). 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: Reports: no psych history 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 Please see his documentation for treatment and interventions prior to my arrival. Briefly, this is a 43-year-old female with a past medical history of IV drug use, hepatitis C who presents emergency department for 3 days of left hand swelling after injecting methamphetamines into her left hand. She states increasing pain and swelling, moderate paresthesias. She states the erythema and swelling is starting to go up her arm. She denies fever, chills, nausea, vomiting. She states she is able to move her fingers though it is incredibly painful to do so. She states feeling distally from the area. On the dorsal surface of the hand at the base of the pinky is a very small open area that is draining, patient states "I did not want to finish draining it as I was afraid we were too far pass that". Currently, patient is awaiting labs, CT as disposition is most likely admission for orthopedic consult for surgery. Patient is resting comfortably though she does complain of pain at a 9/10 scale. Left hand is significantly edematous, erythemic, warm to touch. There is a small area of drainage that is draining purulent fluid. The edema and erythema does extend up the forearm and almost to the elbow. The erythema and edema does dissipate as it travels proximally. She is currently running vancomycin and Zosyn for antibiotics, blood cultures have been drawn. We will assist with pain management and await testing results prior to calling the orthopedist prosthodontist/owner. Patient is agreeable with this plan of care. 1830-labs returned with a slightly elevated white blood cell count 11.4, H&H 11.2/32.3 respectively (similar readings previously), ESR 24, CRP 31. Potassium replaced with 40 mEq elixir, 40 mEq by mouth. 0-C2 the upper extremity returns with a 4.9 x 3 x 1 point for similar abscess to the lateral fifth metacarpal, located in the soft tissue. Extensive cellulitis proximally. I did call and speak with on-call orthopedist Dr. Landon, recommends incision, flushing, packing and admission to the hospitalist and orthopedics will consult and see in the morning. Hospitalist paged at this time 1999-patient agreeable to incision and drainage, that she is deferring any type of anesthetic. She states "it solorio too bad just make a cut". A small 2 cm incision was made lateral dorsal surface of hand with large amount of purulent drainage expected, extensive irrigation with 200 mL normal saline and iodoform packing was placed. The patient did tolerate the procedure well. We did obtain wound cultures during the incision and drainage 2009-spoke with hospitalist Dr. Styles, agreeable to accept patient in patient status. We will transfer to the inpatient team at this time Vital Signs Temperature 97.9 F 05/03/19 16:27 Pulse Rate 90 05/03/19 16:27 Respiratory Rate 16 05/03/19 16:27 Blood Pressure 141/88 05/03/19 16:27 O2 Sat by Pulse Oximetry 97 05/03/19 16:27 Temperature 97.9 F 05/03/19 16:54 Pulse Rate 90 05/03/19 16:54 Respiratory Rate 16 05/03/19 16:54 Blood Pressure 141/88 05/03/19 16:54 O2 Sat by Pulse Oximetry 97 05/03/19 16:54 Oxygen Delivery Oxygen Delivery Room Air Procedures - Abscess I/D Consent obtained: verbal consent Site: hand Side (if applicable): left Technique: incised with #11 blade Irrigation: Yes Packing used?: iodoform Medical Decision Making - Lab Data Result diagrams: 05/03/19 17:49 05/03/19 17:49 Lab Results 05/03/19 05/03/19 05/03/19 Range/Units 17:49 17:49 17:49 WBC 11.4 H (4.3-11.1) K/mcL RBC 3.36 L (3.82-4.97) M/mcL Hgb 11.2 L (11.5-15.4) g/dL Hct 32.3 L (35.3-44.9) % MCV 96.1 (83.0-100.0) fL MCH 33.3 (28.0-33.3) pg MCHC 34.7 (31.6-35.5) g/dL RDW 13.2 (11.5-14.5) % Plt Count 199 (140-400) K/mcL MPV 9.7 (9.4-12.4) fL Immature Gran % 0.3 (0-4) % Seg Neutrophils % 73.4 % Lymphocytes % 15.8 % Monocytes % 9.7 % Eosinophils % 0.5 % Basophils % 0.3 % Neutrophils # 8.4 (1.6-8.9) K/mcL Lymphocytes # 1.8 (0.6-4.6) K/mcL Monocytes # 1.1 (0.0-1.3) K/mcL Eosinophils # 0.1 (0.0-0.6) K/mcL Basophils # 0.0 (0.0-0.2) K/mcL ESR 24 H (0-15) mm/hr Sodium 139 (136-145) mEq/L Potassium 2.9 L (3.5-5.1) mEq/L Chloride 108 H (98-107) mEq/L Carbon Dioxide 28 (23-29) mEq/L BUN 9 (6-20) mg/dL Creatinine 0.59 L (0.60-1.20) mg/dL Est GFR ( Amer) > 60 (> 60) Est GFR (Non-Af Amer) > 60 (> 60) BUN/Creatinine Ratio 15 (6-26) Glucose 76 (70-105) mg/dL Calculated Osmolality 285 (280-300) Lactic Acid (0.5-2.2) mmol/L Calcium 8.7 (8.6-10.3) mg/dL C-Reactive Protein 31 H (Less than 10) mg/L 05/03/19 Range/Units 17:49 WBC (4.3-11.1) K/mcL RBC (3.82-4.97) M/mcL Hgb (11.5-15.4) g/dL Hct (35.3-44.9) % MCV (83.0-100.0) fL MCH (28.0-33.3) pg MCHC (31.6-35.5) g/dL RDW (11.5-14.5) % Plt Count (140-400) K/mcL MPV (9.4-12.4) fL Immature Gran % (0-4) % Seg Neutrophils % % Lymphocytes % % Monocytes % % Eosinophils % % Basophils % % Neutrophils # (1.6-8.9) K/mcL Lymphocytes # (0.6-4.6) K/mcL Monocytes # (0.0-1.3) K/mcL Eosinophils # (0.0-0.6) K/mcL Basophils # (0.0-0.2) K/mcL ESR (0-15) mm/hr Sodium (136-145) mEq/L Potassium (3.5-5.1) mEq/L Chloride (98-107) mEq/L Carbon Dioxide (23-29) mEq/L BUN (6-20) mg/dL Creatinine (0.60-1.20) mg/dL Est GFR ( Amer) (> 60) Est GFR (Non-Af Amer) (> 60) BUN/Creatinine Ratio (6-26) Glucose (70-105) mg/dL Calculated Osmolality (280-300) Lactic Acid 1.2 (0.5-2.2) mmol/L Calcium (8.6-10.3) mg/dL C-Reactive Protein (Less than 10) mg/L
[2019-05-03] MEDS ORDERED: Potassium Chloride Elixir 20 MEQ/15 ML UDC PO ONE (18:38)
[2019-05-03] MEDS ORDERED: Morphine Sulfate Immed Rel 15 MG TABLET PO STA (20:24)
--- NOTE | 2019-05-03 23:10 | Internal Med History&Physical ---
<Kelechi Schroeder - Last Filed: 05/04/19 01:58> Date of Encounter: 05/04/19 Time of Encounter: 23:23 Internal Medicine - H&P: HPI Chief complaint: Left hand swelling Admitted From: Emergency Dept Plans for Post Hospital Care: Home History of present illness: Ms. Holm is a 43 year old female with past medical history of IV drug use, hepatitis C who presents the emergency department with complaint of left hand redness and swelling 3-4 days. Patient states that she has had similar symptoms multiple times in the past consistent with cellulitis/abscess formation. Patient states that she was previously struggling with heroin addiction but has been "doing really well "for the last 3 years. She does admit to a relapse on injectable methamphetamine just prior to her symptoms. She states she did inject in her left arm in multiple places. She denies any systemic symptoms including fevers, chills, chest pain, difficulty breathing, streaking, nausea, vomiting. She also denies any urinary or GI symptoms at this time. She states she does have a history of MRSA. She has also required surger y in the past for abscess formation in her right foot. Most recent episode was approximately one year ago. In the emergency department, vital signs are significant for heart rate 90, otherwise unremarkable. Laboratory results show very mild leukocytosis of 11.3 as well as hemoglobin 11.2 which is consistent with previous results. Chemistries show a potassium of 2.9 and ESR/CRP of 24/31. Lactic acid of 1.2. CT of the left arm was obtained which showed 4.9 x 3 x 1.4 cm abscess in the soft tissue dorsal and lateral to the fifth metacarpal as well as extensive dorsal forearm cellulitis. She was given 1 dose of vancomycin and Zosyn. She also did have an incision and drainage performed by ED staff and tolerated the procedure well. At time of my interview, patient states that she is feeling much better compared to presentation. Her pain in her hand is still present but again is improved. She is still having occasional shooting pains in her left hand as well as a "weird feeling". When asked if she was experiencing any numbness or tingling, she states it just feels weird. Past medical history: As above. No current treatment for hepatitis C Surgical history: Tubal ligation, lithotripsy Social history: IV drug use, heroin/methamphetamine/marijuana. Most recent use of 3 days ago. Denies withdrawal history. One pack per day smoker, denies alcohol use Family history: High blood pressure, diabetes in parents Past Med Surg Social Fam HX - Past Medical History Medical history: kidney stones, other Psychiatric history: no psych history - Past Surgical History Surgical History: other (Incision and drainage; Left oopherectomy) Additional surgical history: LITHOTRIPSY, - Social History Smoking Status: Current every day smoker Smokeless Tobacco Status: No Alcohol use: none Drug use: marijuana, IV Drug Use - Family History Maternal Grandmother Living Status: Hx Family Cancer: Yes (pancreatic) Internal Medicine - H&P: Meds Allergy/AdvReac Type Severity Reaction Status Date / Time No Known Allergies Allergy Verified 09/13/18 11:03 All Systems PM: A 10-system review of systems was performed and is negative for pertinent findings except as documented above in the HPI. Review of systems: - Constitutional: Denies fevers, chills, weight loss, generalized fatigue - Head/Neck: Mild QUIJANO, now resolved. Denies neck stiffness - EENT: Denies vision changes/blurriness, - CVS: Denies chest pain, palpitations, GOSS, orthopnea, edema, PND, - Pulm: Denies SOB, cough, sputum, - GI: Denies abdominal pain, anorexia, nausea, vomiting, diarrhea, constipation, melena - : Denies dysuria, increased frequency, urgency, hematuria, - Heme: Denies ease of bleeding or bruising - MSK: Denies joint pain, limited ROM - Skin: Admits to erythema, swelling or LUE - Neuro: Denies focal deficits, ataxia, - Constitutional Vitals: Temp Pulse Resp BP Pulse Ox 97.9 F 71 16 133/94 97 05/03/19 16:54 05/03/19 22:19 05/03/19 22:19 05/03/19 22:19 05/03/19 22:19 Exam: Gen.: Vitals noted. No acute distress. AAOx3, resting comfortably in bed. HEENT: PERRL/EOMI, oropharynx clear, Normocephalic, atraumatic, MMM. Poor dentition Cardiac: RRR, possible very mild diastolic murmur, +S1/S2, No BLE edema Pulmonary: CTA bilaterally, no wheezes, rales or rhonchi, equal chest expansion, unlabored breathing Abdomen: soft, nontender, BS noted, no guarding, no palpable HSM Skin: Left wrist to forearm with pitting edema and erythema. Sensation intact. minimal erythema. track pickard present. No streaking. Right leg wound MSK: ROM intact but limited due to pain, gait no assessed while in bed. Non tender calf or clubbing Neuro: A&Ox3, moves all extremities, no focal deficits, sensation intact Psych: Appropriate mood and behavior, AOx3 Internal Med - H&P Results - Labs CBC & Chem 7: 05/03/19 17:49 05/03/19 17:49 Labs: Short CBC 05/03/19 Range/Units 17:49 WBC 11.4 H (4.3-11.1) K/mcL Hgb 11.2 L (11.5-15.4) g/dL Hct 32.3 L (35.3-44.9) % Plt Count 199 (140-400) K/mcL Neutrophils # 8.4 (1.6-8.9) K/mcL BMP 05/03/19 17:49 Sodium 139 Potassium 2.9 L Chloride 108 H Carbon Dioxide 28 BUN 9 Creatinine 0.59 L Glucose 76 Calcium 8.7 - Impressions ITS Impressions Upper Extremity CT 05/03/19 16:44 IMPRESSION: 1. 4.9 x 3 x 1.4 cm abscess in the soft tissues dorsal and lateral to the 5th metacarpal. 2. Extensive dorsal hand and forearm cellulitis. 3. No acute osseous abnormality. D/ / Roge Lainez MD / Roge Lainez MD Interpreting Provider: Roge Lainez MD - Assessment and Plan (1) Abscess of skin or subcutaneous tissue Current Visit: Yes Status: Acute Assessment and plan: As demonstrated on CT scan in emergency department Patient denies any systemic symptoms and does not meet sirs criteria at this time Likely secondary to injection drug use as below Patient does have previous wound cultures growing MRSA Status post incision and drainage emergency department Lactic acid within normal limits at 1.7 Blood cultures obtained emergency department, wound cultures obtained and pending Orthopedics has been consulted, appreciate recommendations Plan We will continue empiric antibiotics of vancomycin and Zosyn Follow up on blood cultures Defer surgical interventions to orthopedics We will also obtain echocardiogram given risk factors of IV drug use and previous MRSA infections Qualifiers: Site of cutaneous abscess: extremity Site of cutaneous abscess of extremity: axilla Laterality: left Qualified Code(s): L02.412 - Cutaneous abscess of left axilla (2) Cellulitis of left hand Current Visit: Yes Status: Acute Assessment and plan: As above (3) IVDU (intravenous drug user) Current Visit: Yes Status: Chronic Assessment and plan: Patient reports a chronic history of IV drug use Drugs of choice was heroin previously Patient does admit to relapse after "doing really well "with methamphetamine injection 4 days ago Patient denies any previous withdrawal symptoms and has no concerns for withdrawal this time We will consult social work (4) Hypokalemia Current Visit: Yes Status: Acute Assessment and plan: Potassium noted to be 2.9 on presentation Magnesium level ordered and pending given 80 mEq in ED We will continue monitor and replenish as necessary (5) Hepatitis C Current Visit: Yes Status: Chronic Assessment and plan: - She reports chronic history of hepatitis C likely secondary to IV drug use She denies any current treatment regimens She has established with an outpatient specialist Continue management as outpatient Qualifiers: Viral hepatitis chronicity: chronic Hepatic coma status: without hepatic coma Qualified Code(s): B18.2 - Chronic viral hepatitis C (6) DVT prophylaxis Current Visit: Yes Status: Acute Assessment and plan: Subcutaneous heparin - Time Spent With Patient Total time spent is greater than 50% in coordination of care (as documented) at patient's floor/unit and/or counseling patient: <Bhanu Styles - Last Filed: 05/04/19 05:20> Date of Encounter: 05/04/19 Time of Encounter: 02:30 - Constitutional Constitutional: chills, fever(s), no night sweats - EENT Ears: no ear pain Nose, mouth and throat: no sinus pressure, no sore throat - Cardiovascular Cardiovascular ROS IM: no chest pain, no dyspnea - Respiratory Respiratory: no dyspnea, no hemoptysis, no chest congestion - Gastrointestinal Gastrointestinal: no abdominal pain, no diarrhea, no vomiting - Genitourinary Genitourinary: no dysuria, no flank pain, no hematuria - Musculoskeletal Musculoskeletal ROS IM: arthralgias, no back pain - Integumentary Integumentary IM: new lesions, skin ulcer, sores - Neurological Neurological ROS: no dizziness, no focal weakness, no frequent falls, no headache(s) - Psychiatric Psychiatric: no anxiety, no depression - Allergic/Immunologic Allergic/Immunologic: no GI upset with certain foods - Constitutional Vitals: Temp Pulse Resp BP Pulse Ox 98.5 F 49 18 130/81 98 05/04/19 03:16 05/04/19 03:16 05/04/19 03:16 05/04/19 03:16 05/04/19 03:16 General appearance: Present: mild distress, A&O X 3 - Head Head exam: Present: normal inspection - Eye Eye exam: Present: PERRL. Absent: scleral icterus - ENT ENT exam: Present: mucous membranes dry, normal exam - Respiratory Respiratory exam: Present: CTAB. Absent: chest wall tenderness, rales, rhonchi, wheezes - Cardiovascular Cardiovascular exam: Present: RRR, +S1, +S2. Absent: diastolic murmur, systolic murmur - GI/Abdominal GI/Abdominal exam: Present: normal bowel sounds, soft. Absent: guarding, hepatomegaly, mass, rebound, splenomegaly, tenderness - Extremities Exam Extremities exam: Present: full ROM, joint swelling (left hand; left leg -- both with abscess/ulcerations), tenderness, warm, radial pulses palpable and symmetrical. Absent: calf tenderness, pedal edema - Back Exam Back exam: Absent: CVA tenderness (L), CVA tenderness (R) - Neurological Exam Neurological exam: Present: alert, CN II-XII intact, oriented X3, no focal deficits, strengths equal and symetr throughout. Absent: motor sensory deficit - Psychiatric Psychiatric exam: Present: normal affect, normal mood - Skin Skin exam: Present: dry, warm Internal Med - H&P Results - Labs CBC & Chem 7: 05/03/19 17:49 05/03/19 17:49 Labs: Short CBC 05/03/19 Range/Units 17:49 WBC 11.4 H (4.3-11.1) K/mcL Hgb 11.2 L (11.5-15.4) g/dL Hct 32.3 L (35.3-44.9) % Plt Count 199 (140-400) K/mcL Neutrophils # 8.4 (1.6-8.9) K/mcL BMP 05/03/19 17:49 Sodium 139 Potassium 2.9 L Chloride 108 H Carbon Dioxide 28 BUN 9 Creatinine 0.59 L Glucose 76 Calcium 8.7 - Impressions ITS Impressions Upper Extremity CT 05/03/19 16:44 IMPRESSION: 1. 4.9 x 3 x 1.4 cm abscess in the soft tissues dorsal and lateral to the 5th metacarpal. 2. Extensive dorsal hand and forearm cellulitis. 3. No acute osseous abnormality. D/ / Roge Lainez MD / Roge Lainez MD Interpreting Provider: Roge Lainez MD - Time Spent With Patient Total time spent is greater than 50% in coordination of care (as documented) at patient's floor/unit and/or counseling patient: - Attending Attestation I discussed the patient [place], past medical history, review of systems, lab data, imaging data, and exam findings with Dr. Schroeder. I then saw and examined patient independently as well. Patient has a history of IV drug abuse but has been clean for 3 years. However, recently, she had a relapse and used methamphetamine by injection route. This led to ulceration and abscess formation in her left hand. She also has one on her left leg. Workup in the ER revealed abscess formation her hand. She had incision and drainage by ER staff and consultation placed to Dr. Landon. Patient states she feels much better after the I&D. Her hand is still swollen, but she denies any numbness or weakness. She does have some moderate pain in her hand. We will continue antibiotics, keep her nothing by mouth, and await orthopedic consultation later this morning. Other than my comments above and documented findings, I agree with Dr. Tyler's assessment and plan.
[2019-05-03] MEDS ORDERED: Ondansetron 4 MG/2 ML VIAL IVP PRN (23:53)
[2019-05-03] MEDS ORDERED: Naloxone 0.4 MG/ML INJ IVP PRN (23:53)
[2019-05-04] MEDS: Acetaminophen 325 MG TABLET PO PRN (00:23)
[2019-05-04] MEDS: *HR* OxyCODONE Immed Rel 5 MG TABLET PO PRN ×3 (03:15→20:10)
[2019-05-04] MEDS: *HR* Heparin 5,000 UNIT/ML VIAL SQ SCH ×2 (05:29→18:12)
[2019-05-04] MEDS: Piperacillin/Tazobactam 3.375 GM in 0.9 % Sodium Chloride Mini Bag 100 ML IVPB SCH ×3 (05:30→15:51)
[2019-05-04 05:37] LABS: Basophils % 0.2 %; Eosinophils # 0.2 K/mcL (0.0-0.6); Eosinophils % 1.8 %; Hematocrit 33.1 % (35.3-44.9); Immature Granulocytes % 0.2 % (0-4); Lymphocytes # 1.9 K/mcL (0.6-4.6); Lymphocytes % 20.4 %; Mean Corpuscular HGB Conc 33.2 g/dL (31.6-35.5); Mean Corpuscular Hemoglobin 32.4 pg (28.0-33.3); Mean Corpuscular Volume 97.6 fL (83.0-100.0); Monocytes # 0.9 K/mcL (0.0-1.3); Monocytes % 9.8 %; Neutrophils # 6.3 K/mcL (1.6-8.9); Platelet Count 194 K/mcL (140-400); Red Blood Count 3.39 M/mcL (3.82-4.97); Red Cell Distribution Width 13.5 % (11.5-14.5); Segmented Neutrophils % 67.6 %; White Blood Count 9.3 K/mcL (4.3-11.1)
[2019-05-04 05:44] LABS: Prothrombin Time 11.7 Seconds (9.4-12.1)
[2019-05-04 06:00] LABS: BUN/Creatinine Ratio 14 (6-26); Blood Urea Nitrogen 8 mg/dL (6-20); Calcium 8.5 mg/dL (8.6-10.3); Carbon Dioxide 25 mEq/L (23-29); Chloride 108 mEq/L (98-107); Glucose 106 mg/dL (70-105); Magnesium 2.1 mg/dL (1.6-2.6); Osmolality,Calculated 285 (280-300); Potassium 3.9 mEq/L (3.5-5.1); Sodium 138 mEq/L (136-145); eGFR For African Americans > 60 (> 60); eGFR For Non-African Americans > 60 (> 60)
--- NOTE | 2019-05-04 06:23 | Orthopedics Progress Note ---
Date of Encounter: 05/04/19 Time of Encounter: 06:22 Subjective Interval history: Patient seen this morning, I&D in the ER for infection left dorsum of hand, patient reports improvement with motion swelling. Patient will continue IV antibiotics, continue twice a day packing changes, reevaluation in the morning, blood cultures and wound cultures pending. White blood cell count improving. Left upper extremity neurovascular intact Objective Vital signs: Vital Signs Temp Pulse Resp BP Pulse Ox 05/04/19 03:16 98.5 F 49 18 130/81 98 05/03/19 23:22 98.1 F 56 20 137/95 98 05/03/19 22:19 71 16 133/94 97 05/03/19 16:54 97.9 F 90 16 141/88 97 05/03/19 16:27 97.9 F 90 16 141/88 97 Intake and Output 05/03/19 05/03/19 05/04/19 15:59 23:59 07:59 Intake Total 1350 / 1350 0 / 0 Balance 1350 / 1350 0 / 0 Intake: IV Fluids 1350 / 1350 0.9 % Sodium Chloride 1,000 ML 1000 / 1000 @ 999 mls/hr IVC .Q1H1M ONE Rx# :[id number] Zosyn 3.375 GM In 0.9 % Sodium 100 / 100 Chloride (Mini-Bag +) 100 ML @ 25 mls/hr IVPB ONCE ONE Rx#: [id number] Vancocin 1,000 MG In 0.9 % 250 / 250 Sodium Chloride 250 ML @ 167 mls/hr IVPB ONCE ONE Rx#: [id number] Oral 0 / 0 0 / 0 Other: # Voids 1 1 Weight 65.5 kg 66.06 kg Patient Weight 05/04/19 23:59 Weight 66.06 kg - Labs CBC & BMP: 05/04/19 05:00 05/04/19 05:00 Labs: Abnormal lab results WBC 11.4 K/mcL (4.3-11.1) H 05/03/19 17:49 RBC 3.39 M/mcL (3.82-4.97) L 05/04/19 05:00 Hgb 11.0 g/dL (11.5-15.4) L 05/04/19 05:00 Hct 33.1 % (35.3-44.9) L 05/04/19 05:00 ESR 24 mm/hr (0-15) H 05/03/19 17:49 Potassium 2.9 mEq/L (3.5-5.1) L 05/03/19 17:49 Chloride 108 mEq/L (98-107) H 05/04/19 05:00 Creatinine 0.56 mg/dL (0.60-1.20) L 05/04/19 05:00 Glucose 106 mg/dL (70-105) H 05/04/19 05:00 Calcium 8.5 mg/dL (8.6-10.3) L 05/04/19 05:00 C-Reactive Protein 31 mg/L (Less than 10) H 05/03/19 17:49 Consult Discharge Plan - Plan Referrals: Alyssa Lehman MD [Primary Care Provider] -
--- NOTE | 2019-05-04 10:50 | Event Note ---
Date of Encounter: 05/04/19 Time of Encounter: 10:18 43F w abscess 2/2 IVDA, underwent initial I&D in ED. Seen by Ortho who rec'd against further intervention at this time and to wait until hand surgeon present on Monday for more extensive I&D. Currently on Vanc/Zosyn. Patient states that she could not tolerate I&D in ED and that she agreed to admission for OR I&D and debridement. Denies fevers. Does state that she can barely move her hand now, which is mild improvement from before, but still has considerable pain and extensive swelling up to elbow. On exam, does have soft tissue swelling from 5th PIP to entire hand up to elbow, and erythema of medial dorsal hand. Area of incision covered by gauze, which upon removal immediately resulted in several cc gordon purulence spontaneously draining out of hand. Case therefore personally discussed with Ortho who was again rec'd to proceed without further intervention at this time. Patient does not meet any sepsis criteria and is neurovascularly intact. Will maintain Vanc/Zosyn, follow cultures, and monitor closely for any signs of local worsening or systemic involvement.
[2019-05-04] MEDS: *HR* HYDROcodone/Acet 5/325 mg TABLET PO PRN (15:09)
[2019-05-05] MEDS: *HR* HYDROcodone/Acet 5/325 mg TABLET PO PRN ×3 (00:17→17:15)
[2019-05-05] MEDS: Piperacillin/Tazobactam 3.375 GM in 0.9 % Sodium Chloride Mini Bag 100 ML IVPB SCH ×3 (00:19→16:59)
[2019-05-05] MEDS: *HR* OxyCODONE Immed Rel 5 MG TABLET PO PRN ×2 (06:04→22:18)
[2019-05-05] MEDS: *HR* Heparin 5,000 UNIT/ML VIAL SQ SCH ×2 (06:04→16:59)
[2019-05-05 06:21] LABS: Hematocrit 33.2 % (35.3-44.9); Hemoglobin 11.3 g/dL (11.5-15.4); Mean Corpuscular Hemoglobin 32.6 pg (28.0-33.3); Mean Corpuscular Volume 95.7 fL (83.0-100.0); Platelet Count 160 K/mcL (140-400); Red Blood Count 3.47 M/mcL (3.82-4.97); Red Cell Distribution Width 13.2 % (11.5-14.5)
[2019-05-05 06:41] LABS: BUN/Creatinine Ratio 18 (6-26); Blood Urea Nitrogen 11 mg/dL (6-20); Calcium 8.4 mg/dL (8.6-10.3); Carbon Dioxide 23 mEq/L (23-29); Chloride 105 mEq/L (98-107); Glucose 90 mg/dL (70-105); Osmolality,Calculated 277 (280-300); Sodium 134 mEq/L (136-145); Vancomycin,Trough 4 mcg/mL (5-10); eGFR For African Americans > 60 (> 60); eGFR For Non-African Americans > 60 (> 60)
[2019-05-05] MEDS ORDERED: Isovue-370 500 ML BOTTLE IVP ONE (07:11)
--- NOTE | 2019-05-05 07:17 | Orthopedics Progress Note ---
Date of Encounter: 05/05/19 Time of Encounter: 07:12 Subjective Interval history: Patient evaluated this morning, dressing removed, no active drainage after packing removed. On exam the patient has gross sensation in all 5 digits distal Patient has a area of dusky skin around the area of I&D by the ER Patient can move all fingers, motion is restricted fifth digit most limited Patient has diffuse swelling through hand with some slight swelling of the forearm All compartments soft no concern for compartment syndrome Patient is not following strict elevation criteria, and is not working her fingers to help with swelling out of the hand and more proximal. Cultures are pending, white count is improving We will obtain a stat CT scan to confirm that the overall swelling in the hand is not related to a collection more related to infectious process. At this point time I do not see the need for additional surgical intervention, awaiting CT scan results which I will review when complete may change decision, but identifying the organism and making sure the patient is on the as well as actively participating in proper nonoperative mobilization will be more important long-term recovery. Occupational therapy has, and consult as well. Objective Vital signs: Vital Signs Temp Pulse Resp BP Pulse Ox 05/05/19 03:47 98.5 F 62 19 124/84 98 05/05/19 00:14 98.8 F 58 19 132/80 99 05/04/19 19:45 99.1 F 76 19 117/83 100 05/04/19 16:30 99.7 F H 73 16 123/83 99 05/04/19 11:27 98.0 F 59 16 112/74 100 05/04/19 07:42 98.0 F 73 14 116/80 98 Intake and Output 05/04/19 05/04/19 05/05/19 15:59 23:59 07:59 Intake Total 350 / 940 590 / 940 100 / 100 Balance 350 / 940 590 / 940 100 / 100 Intake: IV Fluids 350 / 700 350 / 700 100 / 100 Zosyn 3.375 GM In 0.9 % Sodium 100 / 200 100 / 200 100 / 100 Chloride (Mini-Bag +) 100 ML @ 25 mls/hr IVPB Q8HR [facility] Rx#: [id number] Vancocin 1,000 MG In 0.9 % 250 / 500 250 / 500 Sodium Chloride 250 ML @ 167 mls/hr IVPB Q12H [facility] Rx#: [id number] Oral 240 / 240 Other: Meal Dinner Percent of Meal Consumed 90% # Voids 1 1 1 - Labs CBC & BMP: 05/05/19 06:05 05/05/19 06:05 Labs: Abnormal lab results WBC 11.4 K/mcL (4.3-11.1) H 05/03/19 17:49 RBC 3.47 M/mcL (3.82-4.97) L 05/05/19 06:05 Hgb 11.3 g/dL (11.5-15.4) L 05/05/19 06:05 Hct 33.2 % (35.3-44.9) L 05/05/19 06:05 ESR 24 mm/hr (0-15) H 05/03/19 17:49 Sodium 134 mEq/L (136-145) L 05/05/19 06:05 Potassium 2.9 mEq/L (3.5-5.1) L 05/03/19 17:49 Chloride 108 mEq/L (98-107) H 05/04/19 05:00 Creatinine 0.56 mg/dL (0.60-1.20) L 05/04/19 05:00 Glucose 106 mg/dL (70-105) H 05/04/19 05:00 Calculated Osmolality 277 (280-300) L 05/05/19 06:05 Calcium 8.4 mg/dL (8.6-10.3) L 05/05/19 06:05 C-Reactive Protein 31 mg/L (Less than 10) H 05/03/19 17:49 Vancomycin Trough 4 mcg/mL (5-10) L 05/05/19 06:05 Consult Discharge Plan - Plan Referrals: Alyssa Lehman MD [Primary Care Provider] -
--- NOTE | 2019-05-05 08:33 | Orthopedics Progress Note ---
Date of Encounter: 05/05/19 Time of Encounter: 08:31 Subjective Interval history: CT scan reviewed, diffuse swelling and edema, no definitive abscess of significance, findings significantly improved with regards to previous seen fluid collections. At this point time I do not see the need for additional surgical intervention, critical is strict elevation and active and passive range of motion exercises to help edema move proximal. Also continue to monitor culture results to confirm correct antibiotics Objective Vital signs: Vital Signs Temp Pulse Resp BP Pulse Ox 05/05/19 07:57 98.9 F 68 8 131/79 98 05/05/19 03:47 98.5 F 62 19 124/84 98 05/05/19 00:14 98.8 F 58 19 132/80 99 05/04/19 19:45 99.1 F 76 19 117/83 100 05/04/19 16:30 99.7 F H 73 16 123/83 99 05/04/19 11:27 98.0 F 59 16 112/74 100 Intake and Output 05/04/19 05/05/19 05/05/19 23:59 07:59 15:59 Intake Total 590 / 940 100 / 100 Balance 590 / 940 100 / 100 Intake: IV Fluids 350 / 700 100 / 100 Zosyn 3.375 GM In 0.9 % Sodium 100 / 200 100 / 100 Chloride (Mini-Bag +) 100 ML @ 25 mls/hr IVPB Q8HR [facility] Rx#: [id number] Vancocin 1,000 MG In 0.9 % 250 / 500 Sodium Chloride 250 ML @ 167 mls/hr IVPB Q12H [facility] Rx#: [id number] Oral 240 / 240 Other: Meal Dinner Percent of Meal Consumed 90% # Voids 1 1 - Labs CBC & BMP: 05/05/19 06:05 05/05/19 06:05 Labs: Abnormal lab results WBC 11.4 K/mcL (4.3-11.1) H 05/03/19 17:49 RBC 3.47 M/mcL (3.82-4.97) L 05/05/19 06:05 Hgb 11.3 g/dL (11.5-15.4) L 05/05/19 06:05 Hct 33.2 % (35.3-44.9) L 05/05/19 06:05 ESR 24 mm/hr (0-15) H 05/03/19 17:49 Sodium 134 mEq/L (136-145) L 05/05/19 06:05 Potassium 2.9 mEq/L (3.5-5.1) L 05/03/19 17:49 Chloride 108 mEq/L (98-107) H 05/04/19 05:00 Creatinine 0.56 mg/dL (0.60-1.20) L 05/04/19 05:00 Glucose 106 mg/dL (70-105) H 05/04/19 05:00 Calculated Osmolality 277 (280-300) L 05/05/19 06:05 Calcium 8.4 mg/dL (8.6-10.3) L 05/05/19 06:05 C-Reactive Protein 31 mg/L (Less than 10) H 05/03/19 17:49 Vancomycin Trough 4 mcg/mL (5-10) L 05/05/19 06:05 Consult Discharge Plan - Plan Referrals: Alyssa Lehman MD [Primary Care Provider] -
--- NOTE | 2019-05-05 10:28 | Internal Med Progress Note ---
Hospitalist Progress Note - Encounter Date of Encounter: 05/05/19 Time of Encounter: 10:25 - Subjective Interval History: Pt states her pain has been relatively managed but that this AM after dressing change/packing removal she is having quite a bit of discomfort. Denies fevers, no N/V, no diarrhea. Does have ongoing draining out of her RUE wound. Also notes that she has a boil L page which overnight opened up producing purulent drainage as well. She does also mention that she believes there might be something like remnants of a tampon in her vagina that she is unable to evacuate causing smell but little to no discharge. - Exam Vitals: Temp Pulse Resp BP Pulse Ox 98.9 F 68 8 131/79 98 05/05/19 07:57 05/05/19 07:57 05/05/19 07:57 05/05/19 07:57 05/05/19 07:57 Exam: General: NAD, good eye contact, appears much older than stated age, nontoxic but uncomfortable Thoracic: Normal breath sounds b/l, no wheezing or crackles Cardio: Normal S1 and S2, regular rate and rhythm, no murmurs Abdomen: Soft, nontender Extremities: Warm, well perfused. No pedal edema. Skin: L page with ~3-4cm erythematous lesion spontaneously draining serosanguinous fluid. LUE hand wrapped but extensive soft tissue swelling with faint erythema extending from entire hand up to several cm proximal to elbow, which is increased from yesterday Neuro: Awake, fully oriented. Speech fluent - Summary of Assessment and Plan Summary of Assessment and Plan: Khushbu Holm is a 43F w hx IVDA, HCV, smoker, who p/w LUE painful redness and swelling, noted to have fluctuance in dorsum of hand over 5th MCP for which limited I&D performed in ED with evacuation of purulent debris, concerning for IVDA-related cellulitis and abscess. L hand and arm purulent cellulitis and abscess: overnight continues spreading proximally, now past elbow. Wound still draining purulent debris today although not nearly as much as yesterday. Ortho re-eval today ordered CT hand which shows trace fluid collection at site of I&D as well as additional small collection in proximal forearm posteriorly over olecranon, the latter of which does not appear to be an obvious infected fluid collection. Additionally of note, the patient does have scattered other skin lesions, including on on L page which is now spontaneously draining. - Ortho following, appreciate co-management - blood and wound cultures pending, ngtd - TTE without obvious vegetations or valvular patholoy - continue empiric Vanc and Zosyn IVDA: SW consult HCV: noted, outpatient follow up PPx: sqh Activity: ambulate FEN: regular, no MIVF Lines: PIV Consults: Ortho Code: Full Dispo: patient requires inpatient eval and management at this time. Anticipate 2-3 days. Will be homegoing Internal Medicine: Result - Labs CBC & Chem 7: 05/05/19 06:05 05/05/19 06:05 Labs: Short CBC 05/05/19 Range/Units 06:05 WBC 9.0 (4.3-11.1) K/mcL Hgb 11.3 L (11.5-15.4) g/dL Hct 33.2 L (35.3-44.9) % Plt Count 160 (140-400) K/mcL BMP 05/05/19 06:05 Sodium 134 L Potassium 4.0 Chloride 105 Carbon Dioxide 23 BUN 11 Creatinine 0.61 Glucose 90 Calcium 8.4 L - ABG Interpretation ABG results: PT/INR, D-dimer PT 11.7 Seconds (9.4-12.1) 05/04/19 05:00 - Impressions Impressions Upper Extremity CT 05/05/19 07:11 IMPRESSION: Extensive soft tissue edema and free fluid within the visualized hand and forearm, most severe posterior to the elbow and involving the dorsal hand. Small fluid collection measuring 1.4 x 1.1 x 0.2 cm in the soft tissues of the dorsal lateral hand at the level of the 5th MCP joint. D/ / Judy Duffy MD / Judy Duffy MD Interpreting Provider: Judy Duffy MD Consult Discharge Plan - Plan Referrals: Alyssa Lehman MD [Primary Care Provider] -
[2019-05-05] MEDS: Acetaminophen 325 MG TABLET PO PRN (11:15)
[2019-05-06] MEDS: Piperacillin/Tazobactam 3.375 GM in 0.9 % Sodium Chloride Mini Bag 100 ML IVPB SCH ×3 (00:11→17:55)
[2019-05-06] MEDS: *HR* OxyCODONE Immed Rel 5 MG TABLET PO PRN (05:40)
[2019-05-06] MEDS: *HR* Heparin 5,000 UNIT/ML VIAL SQ SCH ×2 (05:41→18:06)
--- NOTE | 2019-05-06 07:15 | Orthopedics Progress Note ---
Date of Encounter: 05/06/19 Time of Encounter: 07:10 Subjective Interval history: S: Patient discussed with Dr. Landon. He had seen her over the weekend. This patient is a 43-year-old IV drug user who was had prior abscesses. She was admitted due to a significant ulnar sided hand abscess which underwent I&D in the emergency department. Cultures are growing gram-positive cocci. She says she had injected in this area just a few days prior to the infection. She also, a few days prior to this, has noticed an area of drainage on her left anterior page region which she says is not related to injection but she tried to I&D it herself. She says it has been improving. She also indicates that the left hand has been improving however there is still persistent sharp and achy pains localized ulnarly. O: Afebrile on the vital signs are stable Left hand shows generalized swelling and erythema focused along the ulnar aspect, and significant tenderness with purulent drainage from a 1 cm I&D wound. Motion of the digits is generally limited due to pain. No significant proximal tenderness in the wrist, forearm, and elbow region. Full active and passive motion of the shoulder and the elbow. The fingertips are all grossly sensate and well-perfused, and the radial artery pulse is 2+. On the left page there is a 2 cm diameter area of redness with 2 small poke holes of purulent drainage. The area is tender. No pain with active and passive motion of the knee, ankle, or toes. I did interpret the initial and repeat CT scans which showed an ulnar sided hand abscess which has decreased in size but there does appear to be persistent fluid on the repeat study. A: Left hand abscess Left anterior leg abscess P: At this point the patient did have an I&D in the ER, however I do feel there is persistent abscess that will require surgical drainage. We will plan on doing so today. Also we will I&D the draining wound from the left leg. The risks discussed included but were not limited to stiffness, bleeding, infection, blood clots, damage to neurovascular structures, tendons, ligaments, and bone. Also discussed was the risk of continued symptoms and possible need for further procedures. I did discuss the anesthesia risks including stroke, heart attack, and . I did discuss the reasonable, foreseeable postoperative course with the patient. The patient did wish to proceed and consent was obtained. Objective Vital signs: Vital Signs Temp Pulse Resp BP Pulse Ox 05/06/19 06:14 99.6 F 58 16 148/79 99 05/06/19 02:41 98.2 F 71 18 138/82 99 05/05/19 23:05 98.4 F 58 20 151/85 100 05/05/19 19:00 99.0 F 70 18 129/82 99 05/05/19 15:03 98.2 F 52 18 147/75 97 05/05/19 11:12 101.8 F H 78 16 118/76 100 05/05/19 07:57 98.9 F 68 8 131/79 98 Intake and Output 05/05/19 05/05/19 05/06/19 15:59 23:59 07:59 Intake Total 830 / 1850 920 / 1850 100 / 100 Balance 830 / 1850 920 / 1850 100 / 100 Intake: IV Fluids 350 / 800 350 / 800 100 / 100 Zosyn 3.375 GM In 0.9 % Sodium 100 / 300 100 / 300 100 / 100 Chloride (Mini-Bag +) 100 ML @ 25 mls/hr IVPB Q8HR [facility] Rx#: [id number] Vancocin 1,250 MG In 0.9 % 250 / 500 250 / 500 Sodium Chloride 250 ML @ 166. 667 mls/hr IVPB Q12H [facility] Rx#: [id number] Oral 480 / 1050 570 / 1050 0 / 0 Other: Meal Lunch Dinner Percent of Meal Consumed 100% 100% # Voids 1 1 1 Weight 66.5 kg Patient Weight 05/06/19 23:59 Weight 66.5 kg - Labs CBC & BMP: 05/05/19 06:05 05/05/19 06:05 Labs: Abnormal lab results WBC 11.4 K/mcL (4.3-11.1) H 05/03/19 17:49 RBC 3.47 M/mcL (3.82-4.97) L 05/05/19 06:05 Hgb 11.3 g/dL (11.5-15.4) L 05/05/19 06:05 Hct 33.2 % (35.3-44.9) L 05/05/19 06:05 ESR 24 mm/hr (0-15) H 05/03/19 17:49 Sodium 134 mEq/L (136-145) L 05/05/19 06:05 Potassium 2.9 mEq/L (3.5-5.1) L 05/03/19 17:49 Chloride 108 mEq/L (98-107) H 05/04/19 05:00 Creatinine 0.56 mg/dL (0.60-1.20) L 05/04/19 05:00 Glucose 106 mg/dL (70-105) H 05/04/19 05:00 Calculated Osmolality 277 (280-300) L 05/05/19 06:05 Calcium 8.4 mg/dL (8.6-10.3) L 05/05/19 06:05 C-Reactive Protein 31 mg/L (Less than 10) H 05/03/19 17:49 Vancomycin Trough 4 mcg/mL (5-10) L 05/05/19 06:05 Consult Discharge Plan - Plan Referrals: Alyssa Lehman MD [Primary Care Provider] -
[2019-05-06 08:45] LABS: Basophils % 0.5 %; Eosinophils # 0.1 K/mcL (0.0-0.6); Hemoglobin 11.2 g/dL (11.5-15.4); Immature Granulocytes % 0.6 % (0-4); Lymphocytes # 1.7 K/mcL (0.6-4.6); Lymphocytes % 26.1 %; Mean Corpuscular HGB Conc 33.9 g/dL (31.6-35.5); Mean Corpuscular Hemoglobin 32.7 pg (28.0-33.3); Mean Corpuscular Volume 96.5 fL (83.0-100.0); Mean Platelet Volume 10.7 fL (9.4-12.4); Monocytes # 0.7 K/mcL (0.0-1.3); Monocytes % 10.6 %; Platelet Count 217 K/mcL (140-400); Red Blood Count 3.42 M/mcL (3.82-4.97); Red Cell Distribution Width 13.3 % (11.5-14.5); Segmented Neutrophils % 60.2 %; White Blood Count 6.6 K/mcL (4.3-11.1)
[2019-05-06 08:53] LABS: BUN/Creatinine Ratio 20 (6-26); Blood Urea Nitrogen 13 mg/dL (6-20); Calcium 8.6 mg/dL (8.6-10.3); Carbon Dioxide 26 mEq/L (23-29); Chloride 103 mEq/L (98-107); Glucose 97 mg/dL (70-105); Osmolality,Calculated 284 (280-300); Potassium 4.2 mEq/L (3.5-5.1); Sodium 137 mEq/L (136-145); eGFR For African Americans > 60 (> 60); eGFR For Non-African Americans > 60 (> 60)
--- NOTE | 2019-05-06 12:43 | Electrocardiograph Report ---
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
--- NOTE | 2019-05-06 12:48 | Internal Med Progress Note ---
Hospitalist Progress Note - Encounter Date of Encounter: 05/06/19 Time of Encounter: 08:45 - Subjective Interval History: Did spike fever yesterday. Pt states she is glad she is going to surgery later today. Per Ortho, there is fluid collection which might benefit from OR. She additionally complains again of foul smelling vaginal discharge, and is agree able to [employer] WORKER consultation. Otherwise, denies CP, SOB, N/V/D. - Exam Vitals: Temp Pulse Resp BP Pulse Ox 97.9 F 85 16 146/88 100 05/06/19 11:13 05/06/19 11:13 05/06/19 11:13 05/06/19 11:13 05/06/19 11:13 Exam: General: NAD, good eye contact, appears older than stated age Thoracic: Normal breath sounds b/l, no wheezing or crackles Cardio: Normal S1 and S2, regular rate and rhythm, no murmurs Abdomen: Soft, nontender Extremities: Warm, well perfused. DP pulses 2+ b/l. No edema. Skin: LUE erythematous and swollen from 5th digit to entire hand up to elbow. Does also have L page abscess as well Neuro: Awake, fully oriented. Speech fluent - Summary of Assessment and Plan Summary of Assessment and Plan: Khushbu Holm is a 43F w hx IVDA, HCV, smoker, who p/w LUE painful redness and swelling, noted to have fluctuance in dorsum of hand over 5th MCP for which limited I&D performed in ED with evacuation of purulent debris, concerning for IVDA-related cellulitis and abscess. L hand and arm purulent cellulitis and abscess: CT showing small fluid collection; discussed case with Dr Canada who plans to take patient to OR later today. In IVDA pt w scattered abscesses, checked TTE which was negative for obvious valvular pathology. - Ortho following, appreciate co-management - blood and wound cultures pending, ngtd - continue empiric Vanc and Zosyn Vaginal discharge: pt concerned for foul smell and thinks she has retained tampon - Him Director consult IVDA: SW consult HCV: noted, outpatient follow up PPx: sqh Activity: ambulate FEN: NPO then resume regular diet, no MIVF Lines: PIV Consults: Ortho, Him Director Code: Full Dispo: patient requires inpatient eval and management at this time. Anticipate 2-3 days. Will be homegoing Internal Medicine: Result - Labs CBC & Chem 7: 05/06/19 07:52 05/06/19 07:52 Labs: Short CBC 05/06/19 Range/Units 07:52 WBC 6.6 (4.3-11.1) K/mcL Hgb 11.2 L (11.5-15.4) g/dL Hct 33.0 L (35.3-44.9) % Plt Count 217 (140-400) K/mcL Neutrophils # 4.0 (1.6-8.9) K/mcL BMP 05/06/19 07:52 Sodium 137 Potassium 4.2 Chloride 103 Carbon Dioxide 26 BUN 13 Creatinine 0.66 Glucose 97 Calcium 8.6 - ABG Interpretation ABG results: PT/INR, D-dimer PT 11.7 Seconds (9.4-12.1) 05/04/19 05:00 - Impressions Impressions Tibia/Fibula X-Ray 05/06/19 07:15 IMPRESSION: Mild soft tissue swelling without acute osseous abnormality. D/ / Sandy Padilla MD / Sandy Padilla MD Interpreting Provider: Sandy Padilla MD Consult Discharge Plan - Plan Referrals: Alyssa Lehman MD [Primary Care Provider] -
--- NOTE | 2019-05-06 17:37 | Anesthesia Evaluation PreOp ---
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 Other Medical History: Hepatic (Hep C) Anesthesia History: No Prior Anesthetic Complications, Past Anesthesia (Tubal ligation, lithotripsy) : No Test: Negative (05/06/19) Alcohol Use: none Drug use: marijuana, IV Drug Use Medications and Allergies Ibuprofen [Ibu-200] 600 - 1,000 mg PO DAILY PRN 05/05/19 [History] Allergy/AdvReac Type Severity Reaction Status Date / Time No Known Allergies Allergy Verified 05/05/19 12:03 - Meds/Allergy Pre-op Review Medications Reviewed: Yes Allergies Reviewed: Yes Beta Blockers on Current Med List: No Anesthesia Results - Labs 05/06/19 07:52 05/06/19 07:52 - Imaging EKG: report reviewed ( Interpretive Statements SINUS BRADYCARDIA WITH SINUS ARRHYTHMIA Electronically Signed On 05-06-2019 12:42:08 EDT by Roge Brady Rate 58) Additional studies: Limited Echocardiogram Name: Khushbu Hyacinthdex Holm Date of Study: 05/04/2019 Impressions: Limited Echo LVEF 60%. Normal LV chamber size, wall thickness and function. Normal right ventricular structure and function. Mild tricuspid regurgitation. No identifiable valvular vegetations. Anesthesia Exam Vital Signs/O2 Sat, Most Current Temp Pulse Resp BP Pulse Ox 99.2 F 75 16 115/69 100 05/06/19 15:21 05/06/19 15:21 05/06/19 15:21 05/06/19 15:21 05/06/19 15:21 NPO (# of Hours): > 8 hrs Pain Scale: 0 Pain Scale Used: Numeric (1 - 10) - HEENT Pupil (Motor): Pupils equal, EOMI - ADJUNCT LATIN PROFESSOR LOC: Oriented ADJUNCT LATIN PROFESSOR Motor: Normal RUE, Normal LUE, Normal RLE, Normal LLE, Normal Face ADJUNCT LATIN PROFESSOR Sensory: Normal: RUE, LUE, RLE, LLE, Face - Cardiac Rhythm: Regular Murmur: None JVD: No Carotid Bruit: No - Pulmonary Breath Sounds: bilateral Clear Respiratory Effort: Symmetrical Anesthesia Assess/Plan ASA Score: 3 Level of consciousness: Cooperative Anesthetic Plan: General Autologous Blood: Yes Monitoring Plan: Standard Monitors Recovery Plan: PACU
--- NOTE | 2019-05-06 18:48 | OB/GYN Consult Note ---
Date of Encounter: 05/06/19 Time of Encounter: 18:44 Assessment and Plan (1) Vaginal discharge Current Visit: Yes Status: Acute Sterile speculum exam completed. Large amount of thick white adherent discharge visualized in vagina. Vaginosis panel collected with results pending. Will treat for any positive result. No retained tampon found. History of Present Illness Consult date: 05/06/19 Reason for consult: other (Foul smelling vaginal discharge ) Chief complaint: Foul smelling vaginal discharge History of present illness: Ms. Holm presents with the complaint of foul smelling vaginal discharge x 2 weeks. Patient believes the smell could be a retained tampon. Denies any new sexual partners and history of STD's. Patient denies history of gynecological surgeries or hysterectomy. Past Med Surg Social Fam HX - Past Medical History Medical history: kidney stones, other Additional medical history: tubal , tubal ligation, surgical I&D of cellulitus of right foot, Hep C postive Psychiatric history: no psych history - Past Surgical History Surgical History: other (Incision and drainage; Left oopherectomy) Additional surgical history: LITHOTRIPSY, - Social History Smoking Status: Current every day smoker Smokeless Tobacco Status: No Alcohol use: none Drug use: marijuana, IV Drug Use - Family History Maternal Grandmother Living Status: Hx Family Cardiac Disorders: Yes Hx Family Cancer: Yes (pancreatic) Hx Family Endocrine Disorder: Yes Medications and Allergies Ibuprofen [Ibu-200] 600 - 1,000 mg PO DAILY PRN 05/05/19 [History] Allergy/AdvReac Type Severity Reaction Status Date / Time No Known Allergies Allergy Verified 05/05/19 12:03 Review of Systems Genitourinary Female: as per HPI, vaginal discharge, vaginal odor, no vaginal pruritis Exam - Vital Signs Vital signs: Initial Vital Signs Temp Pulse Resp BP Pulse Ox 97.9 F 90 16 141/88 97 05/03/19 16:27 05/03/19 16:27 05/03/19 16:27 05/03/19 16:27 05/03/19 16:27 - Vulva Vulva: bilateral: normal - Vagina Vagina: Present: discharge (Thick white adherent to vaginal wall ) - Anus/Rectum Anus/Rectum: Present: normal perianal skin Results Result Diagrams: 05/06/19 07:52 05/06/19 07:52 Abnormal lab results WBC 11.4 K/mcL (4.3-11.1) H 05/03/19 17:49 RBC 3.42 M/mcL (3.82-4.97) L 05/06/19 07:52 Hgb 11.2 g/dL (11.5-15.4) L 05/06/19 07:52 Hct 33.0 % (35.3-44.9) L 05/06/19 07:52 ESR 24 mm/hr (0-15) H 05/03/19 17:49 Sodium 134 mEq/L (136-145) L 05/05/19 06:05 Potassium 2.9 mEq/L (3.5-5.1) L 05/03/19 17:49 Chloride 108 mEq/L (98-107) H 05/04/19 05:00 Creatinine 0.56 mg/dL (0.60-1.20) L 05/04/19 05:00 Glucose 106 mg/dL (70-105) H 05/04/19 05:00 Calculated Osmolality 277 (280-300) L 05/05/19 06:05 Calcium 8.4 mg/dL (8.6-10.3) L 05/05/19 06:05 C-Reactive Protein 31 mg/L (Less than 10) H 05/03/19 17:49 Vancomycin Trough 4 mcg/mL (5-10) L 05/05/19 06:05 All other labs normal. Consult Discharge Plan - Plan Additional Instructions: Follow up with OBGYN for yearly exam. Referrals: Alyssa Lehman MD [Primary Care Provider] -
[2019-05-06] MEDS ORDERED: *HR* Midazolam HCl 2 MG/2 ML VIAL ONE (19:04)
[2019-05-06] MEDS ORDERED: Lidocaine -MPF 2% 2 ML VIAL ONE (19:04)
[2019-05-06] MEDS ORDERED: *HR* Propofol 200 MG/20 ML VIAL IVP ONE (19:04)
[2019-05-06] MEDS ORDERED: *HR* FentaNYL (PF) 100 MCG/2 ML VIAL ONE (19:04)
[2019-05-06] MEDS ORDERED: Ketorolac 30 MG/ML VIAL ONE (19:52)
[2019-05-06] MEDS ORDERED: Ondansetron 4 MG/2 ML VIAL ONE (19:52)
[2019-05-06] MEDS ORDERED: *HR* HYDROMORPHONE 2 MG/ML VIAL ONE (19:58)
[2019-05-06] MEDS ORDERED: *HR* Promethazine 25 MG/ML VIAL IVP PRN (20:27)
[2019-05-06] MEDS ORDERED: *HR* OxyCODONE Immed Rel 5 MG TABLET PO PRN (20:27)
[2019-05-06] MEDS ORDERED: *HR* HYDROmorphone (PF) 1 MG/ML SYRINGE IVP PRN (20:27)
[2019-05-06] MEDS ORDERED: Ondansetron 4 MG/2 ML VIAL IVP ONE (20:27)
--- NOTE | 2019-05-06 20:30 | Orthopedic Operative Note ---
Date of procedure: 05/06/19 Procedure: OPERATIVE REPORT SURGEON: Erick Canada MD PREOPERATIVE DIAGNOSIS: Left dorsal/ulnar hand abscess and left anterior subcutaneous leg abscess POSTOPERATIVE DIAGNOSIS: Same PROCEDURE: Incision, drainage, irrigation, and debridement of the left hand as well as the left leg ANESTHESIA: Gen. anesthesia SPECIMENS: Culture swabs obtained from the left hand and left leg consent for both aerobic and anaerobic specimens PREOPERATIVE NOTE The surgical plan was reviewed with the patient. The risks, benefits, alternatives, and potential complications of this procedure were discussed with the patient including injury to veins, arteries, nerves, tendons, ligaments, and bone. Also discussed were the risks of infection, bleeding, pain, blood clots, the possible need for a blood transfusion, the possible need for further procedures, heart attack, stroke, and . Additional risks include persistent symptoms despite surgery and the need for further debridements. All of this was explained in simple terms, and the patient verbalized understanding and wished to proceed. Consent was given to proceed with surgery. PROCEDURE: The patient was seen in the preoperative holding area where the identify and the consent were confirmed. The left hand and left leg was marked. Final questions were answered. The patient was brought back to the operating room and placed supine on the operating room table. A huddle was performed with the patient and all vital surgical team members confirming patient identity, the correct procedure, and the correct operative site. Gen. anesthesia was administered. The operative extremity was prepped and draped in the usual sterile fashion. A surgical time out was performed immediately preceding the incision with all personnel in the operating room to confirm patient identity, the correct operative site and extremity, correct radiographic studies, availability of appropriate surgical equipment, and agreement on the planned procedure. Attention was first directed to the left hand. The limb was elevated and the tourniquet was inflated without exsanguination. The old I&D site was oozing purulence. This was extended distally and longitudinally to the level of the proximal phalanx. The subcutaneous tissue was spread apart and further abscess was decompressed. This was swabbed for culture. A small amount of necrotic fat was sharply excised. The wound was copiously irrigated with 3 L of saline and the wound bed was subsequently cleaned. The wound was loosely closed in the central portion with 4-0 nylon stitches and packed proximally and distally open with quarter-inch iodoform packing. The tourniquet was deflated and a soft, sterile dressing was applied. Attention was then directed to the left leg. There was an area of fluctuance in the mid anterior portion of the leg which was incised longitudinally. The skin in this area was very thin and friable. It was sharply debrided there was a small abscess cavity which was decompressed with a small amount of purulence. The wound was copiously irrigated after swabbing for cultures. The wound was then packed open with quarter-inch iodoform packing. A soft, sterile dressing was applied. The instrument, sponge, and needle counts were correct after wound closure. POST OPERATIVE PLAN: Daily dressing and packing changes and continue IV antibiotics and follow-up cultures. Was there an surgeon assistant present: No Estimated blood loss (cc): 5
--- NOTE | 2019-05-06 21:01 | Anesthesia Evaluation Post Op ---
Date of Encounter: 05/06/19 Time of Encounter: 21:01 - Vital Signs Vital Signs: Vital Signs/O2 Sat, Most Current Temp Pulse Resp BP Pulse Ox 99.0 F 42 12 158/89 100 05/06/19 20:59 05/06/19 20:59 05/06/19 20:59 05/06/19 20:59 05/06/19 20:59 - Lungs Lungs: Clear Ascult./Percussion - Airway Airway: Non-obstructed - Cardiovascular Regular Rate - Mental Status Mental Status: Alert & Oriented, Answers Appropriately - Pain Pain Scale: 0 Pain Scale used: Numeric (1 - 10) - Nausea Vomiting Nausea Vomiting: Not Present - Hydration Hydration: Ice chips, Has not voided - Discharge PostOp Status: Transfer Patient to floor
[2019-05-06] MEDS ORDERED: Ondansetron 4 MG/2 ML VIAL IVP PRN (21:24)
[2019-05-06] MEDS ORDERED: Naloxone 0.4 MG/ML INJ IVP PRN (21:24)
[2019-05-06] MEDS ORDERED: Acetaminophen 325 MG TABLET PO PRN (21:24)
[2019-05-06 21:43] LABS: Candida DNA DETECTED (Not Detect); Gardnerella DNA DETECTED (Not Detect); Trichomonas DNA Not Detected (Not Detect)
[2019-05-07] MEDS: Piperacillin/Tazobactam 3.375 GM in 0.9 % Sodium Chloride Mini Bag 100 ML IVPB SCH ×2 (00:20→08:18)
[2019-05-07] MEDS ORDERED: Fluconazole 100 MG TABLET PO ONE (00:31)
[2019-05-07] MEDS: *HR* HYDROcodone/Acet 5/325 mg TABLET PO PRN ×2 (02:27→18:04)
[2019-05-07] MEDS: MetroNIDAZOLE Vaginal Gel VG SCH ×2 (02:28→21:57)
[2019-05-07 04:59] LABS: Hemoglobin 10.6 g/dL (11.5-15.4); Mean Corpuscular HGB Conc 33.1 g/dL (31.6-35.5); Mean Corpuscular Hemoglobin 32.3 pg (28.0-33.3); Mean Corpuscular Volume 97.6 fL (83.0-100.0); Mean Platelet Volume 9.9 fL (9.4-12.4); Platelet Count 205 K/mcL (140-400); Red Blood Count 3.28 M/mcL (3.82-4.97); Red Cell Distribution Width 13.2 % (11.5-14.5); White Blood Count 5.6 K/mcL (4.3-11.1)
[2019-05-07 05:13] LABS: BUN/Creatinine Ratio 24 (6-26); Blood Urea Nitrogen 15 mg/dL (6-20); Calcium 8.8 mg/dL (8.6-10.3); Carbon Dioxide 28 mEq/L (23-29); Chloride 103 mEq/L (98-107); Glucose 102 mg/dL (70-105); Osmolality,Calculated 287 (280-300); Potassium 4.1 mEq/L (3.5-5.1); Sodium 138 mEq/L (136-145); eGFR For African Americans > 60 (> 60); eGFR For Non-African Americans > 60 (> 60)
[2019-05-07] MEDS: *HR* Heparin 5,000 UNIT/ML VIAL SQ SCH ×2 (05:57→17:11)
[2019-05-07] MEDS ORDERED: *HR* HYDROcodone/Acet 5/325 mg TABLET PO ONE (06:39)
--- NOTE | 2019-05-07 07:50 | Orthopedics Progress Note ---
Date of Encounter: 05/07/19 Time of Encounter: 07:47 Subjective Interval history: S: Resting in bed comfortably. Pain controlled O: AFVSS Left hand evaluated and the wound packing is pulled. No significant drainage. Improvement in the swelling and erythema. Repacked. The patient can actively flex and extend all digits, extend the thumb, cross the index and long fingers, make an okay sign, and oppose the thumb. The fingertips are all grossly sensate and well-perfused, and the radial artery pulse is 2+. Left leg is evaluated and the packing is pulled from the wound. No drainage. The wound remains open the drain nicely. She can dorsi flex implant flex ankle and toes and the foot is sensate and well-perfused. A: Left hand infection and left leg infection P: Continue IV antibiotics for the next 24 hours Anticipate discharge tomorrow on oral antibiotics Routine daily dressing changes Objective Vital signs: Vital Signs Temp Pulse Resp BP Pulse Ox 05/07/19 06:25 98.5 F 63 18 154/85 98 05/07/19 02:50 97.9 F 50 17 127/81 97 05/06/19 23:25 97.5 F L 56 18 137/77 98 05/06/19 22:25 48 18 142/84 99 05/06/19 21:55 97.5 F L 47 17 144/89 99 05/06/19 21:15 97.9 F 46 17 151/88 100 05/06/19 20:59 99.0 F 42 12 158/89 100 05/06/19 20:49 51 10 150/80 100 05/06/19 20:39 65 14 142/81 99 05/06/19 20:29 98.6 F 70 10 145/94 98 05/06/19 15:21 99.2 F 75 16 115/69 100 05/06/19 11:13 97.9 F 85 16 146/88 100 Intake and Output 05/06/19 05/06/19 05/07/19 15:59 23:59 07:59 Intake Total 0 / 450 350 / 450 275 / 275 Output Total 5 / 5 Balance 0 / 445 345 / 445 275 / 275 Intake: IV Fluids 350 / 450 275 / 275 Zosyn 3.375 GM In 0.9 % Sodium 100 / 200 25 / 25 Chloride (Mini-Bag +) 100 ML @ 25 mls/hr IVPB Q8HR [facility] Rx#: [id number] Vancocin 1,250 MG In 0.9 % 250 / 250 250 / 250 Sodium Chloride 250 ML @ 166. 667 mls/hr IVPB Q8H [facility] Rx#: [id number] Oral 0 / 0 Output: Estimated Blood Loss Other: # Voids 2 Weight 66.7 kg Patient Weight 05/07/19 23:59 Weight 66.7 kg - Labs CBC & BMP: 05/07/19 04:40 05/07/19 04:40 Labs: Abnormal lab results WBC 11.4 K/mcL (4.3-11.1) H 05/03/19 17:49 RBC 3.28 M/mcL (3.82-4.97) L 05/07/19 04:40 Hgb 10.6 g/dL (11.5-15.4) L 05/07/19 04:40 Hct 32.0 % (35.3-44.9) L 05/07/19 04:40 ESR 24 mm/hr (0-15) H 05/03/19 17:49 Sodium 134 mEq/L (136-145) L 05/05/19 06:05 Potassium 2.9 mEq/L (3.5-5.1) L 05/03/19 17:49 Chloride 108 mEq/L (98-107) H 05/04/19 05:00 Creatinine 0.56 mg/dL (0.60-1.20) L 05/04/19 05:00 Glucose 106 mg/dL (70-105) H 05/04/19 05:00 Calculated Osmolality 277 (280-300) L 05/05/19 06:05 Calcium 8.4 mg/dL (8.6-10.3) L 05/05/19 06:05 C-Reactive Protein 31 mg/L (Less than 10) H 05/03/19 17:49 Vancomycin Trough 4 mcg/mL (5-10) L 05/05/19 06:05 Alyssa species DNA DETECTED (Not Detect) A 05/06/19 18:04 Gardnerella DNA Probe DETECTED (Not Detect) A 05/06/19 18:04 Consult Discharge Plan - Plan Additional Instructions: Follow up with OBGYN for yearly exam. Referrals: Alyssa Lehman MD [Primary Care Provider] -
[2019-05-07] MEDS: *HR* OxyCODONE Immed Rel 5 MG TABLET PO PRN ×2 (08:14→14:33)
--- NOTE | 2019-05-07 08:53 | Internal Med Progress Note ---
Hospitalist Progress Note - Encounter Date of Encounter: 05/07/19 Time of Encounter: 08:52 - Subjective Interval History: Pt looks and feels much better today, says arm and hand are less swollen and painful and red. Glad she can d/c likely tomorrow. Appreciate of Ortho surg. Also, yesterday had SALESFORCE DEVELOPER do pelvic and was started on diflucan and flagyl intrav aginally for BV and laura. - Exam Vitals: Temp Pulse Resp BP Pulse Ox 98.5 F 63 18 154/85 98 05/07/19 06:25 05/07/19 06:25 05/07/19 06:25 05/07/19 06:25 05/07/19 06:25 Exam: General: NAD, good eye contact, appears older than stated age Thoracic: Normal breath sounds b/l, no wheezing or crackles Cardio: Normal S1 and S2, regular rate and rhythm, no murmurs Abdomen: Soft, nontender Extremities: Warm, well perfused. DP pulses 2+ b/l. No edema. Skin: LUE erythematous and swollen from base of 5th digit to entire hand and distal forearm, significantly improved. L page wrapped/bandaged Neuro: Awake, fully oriented. Speech fluent - Summary of Assessment and Plan Summary of Assessment and Plan: Khushbu Holm is a 43F w hx IVDA, HCV, smoker, who p/w LUE painful redness and swelling, noted to have fluctuance in dorsum of hand over 5th MCP for which limited I&D performed in ED with evacuation of purulent debris, concerning for IVDA-related cellulitis and abscess. L hand and arm purulent cellulitis and abscess, +MRSA: CT showing small fluid collection; taken by Ortho Dr Canada to OR 05/06 for I&D/debridement. TTE unremarkable for obvious valvular pathology. - Ortho following, appreciate co-management - Abscess culture growing MRSA - continue empiric Vanc and Zosyn today - tomorrow will convert to PO abx (consider Bactrim DS 2 tabs bid, or possibly cipro 500 bid or clinda 600 tid) to complete an additional 7-10 days Yeast infection and BV: appreciate SALESFORCE DEVELOPER consultation - s/p doses of flagyl and diflucan IVDA: SW consult HCV: noted, outpatient follow up PPx: sqh Activity: ambulate FEN: regular diet, no MIVF Lines: PIV Consults: Ortho, Ground Instructor Advanced Code: Full Dispo: patient requires inpatient eval and management at this time. Anticipate d/c tomorrow, will be homegoing Internal Medicine: Result - Labs CBC & Chem 7: 05/07/19 04:40 05/07/19 04:40 Labs: Short CBC 05/07/19 Range/Units 04:40 WBC 5.6 (4.3-11.1) K/mcL Hgb 10.6 L (11.5-15.4) g/dL Hct 32.0 L (35.3-44.9) % Plt Count 205 (140-400) K/mcL BMP 05/06/19 05/07/19 07:52 04:40 Sodium 137 138 Potassium 4.2 4.1 Chloride 103 103 Carbon Dioxide 26 28 BUN 13 15 Creatinine 0.66 0.63 Glucose 97 102 Calcium 8.6 8.8 - ABG Interpretation ABG results: PT/INR, D-dimer PT 11.7 Seconds (9.4-12.1) 05/04/19 05:00 Consult Discharge Plan - Plan Additional Instructions: Follow up with OBGYN for yearly exam. Referrals: Alyssa Lehman MD [Primary Care Provider] -
[2019-05-08] MEDS: *HR* HYDROcodone/Acet 5/325 mg TABLET PO PRN ×2 (01:00→07:48)
[2019-05-08 03:06] LABS: Hemoglobin 10.3 g/dL (11.5-15.4); Mean Corpuscular HGB Conc 33.2 g/dL (31.6-35.5); Mean Corpuscular Hemoglobin 32.8 pg (28.0-33.3); Mean Corpuscular Volume 98.7 fL (83.0-100.0); Mean Platelet Volume 10.1 fL (9.4-12.4); Platelet Count 190 K/mcL (140-400); Red Blood Count 3.14 M/mcL (3.82-4.97); Red Cell Distribution Width 13.4 % (11.5-14.5); White Blood Count 4.9 K/mcL (4.3-11.1)
[2019-05-08 03:25] LABS: BUN/Creatinine Ratio 21 (6-26); Blood Urea Nitrogen 13 mg/dL (6-20); Calcium 8.8 mg/dL (8.6-10.3); Carbon Dioxide 28 mEq/L (23-29); Chloride 103 mEq/L (98-107); Glucose 105 mg/dL (70-105); Osmolality,Calculated 288 (280-300); Potassium 3.9 mEq/L (3.5-5.1); Sodium 139 mEq/L (136-145); eGFR For African Americans > 60 (> 60); eGFR For Non-African Americans > 60 (> 60)
[2019-05-08] MEDS: *HR* Heparin 5,000 UNIT/ML VIAL SQ SCH (05:58)
--- NOTE | 2019-05-08 07:36 | Orthopedics Progress Note ---
Date of Encounter: 05/08/19 Time of Encounter: 07:34 Subjective Interval history: S: Resting in bed comfortably. Pain controlled O: AFVSS Left hand wound improving regarding swelling and redness. Packing pulled. Minimal drainage Left leg wound also improving regarding redness and swelling. Minimal drainage. NV intact to both sites. A: Left hand infection and left leg infection P: Orthopedically stable for discharge on oral Abx per hospitalist Follow up next week in the office with Tracie Martinez Taught the patient daily dressing changes in mean time. Objective Vital signs: Vital Signs Temp Pulse Resp BP Pulse Ox 05/08/19 06:31 98.2 F 67 18 129/84 98 05/08/19 03:44 98.4 F 61 17 133/68 96 05/07/19 22:08 97.9 F 65 18 136/85 100 05/07/19 20:20 98.0 F 50 17 153/78 98 05/07/19 15:05 98.9 F 58 18 151/83 100 05/07/19 10:47 97.9 F 55 18 159/89 99 Intake and Output 05/07/19 05/07/19 05/08/19 15:59 23:59 07:59 Intake Total 610 / 1475 490 / 1475 250 / 250 Balance 610 / 1475 490 / 1475 250 / 250 Intake: IV Fluids 250 / 875 250 / 875 250 / 250 Vancocin 1,000 MG In 0.9 % 250 / 250 Sodium Chloride 250 ML @ 166. 667 mls/hr IVPB Q8H [facility] Rx#: [id number] Vancocin 1,250 MG In 0.9 % 250 / 750 250 / 750 Sodium Chloride 250 ML @ 166. 667 mls/hr IVPB Q8H [facility] Rx#: [id number] Oral 360 / 600 240 / 600 Other: Meal Lunch Percent of Meal Consumed 100% # Voids 3 1 Weight 66.9 kg Patient Weight 05/08/19 23:59 Weight 66.9 kg - Labs CBC & BMP: 05/08/19 02:45 05/08/19 02:45 Labs: Abnormal lab results WBC 11.4 K/mcL (4.3-11.1) H 05/03/19 17:49 RBC 3.14 M/mcL (3.82-4.97) L 05/08/19 02:45 Hgb 10.3 g/dL (11.5-15.4) L 05/08/19 02:45 Hct 31.0 % (35.3-44.9) L 05/08/19 02:45 ESR 24 mm/hr (0-15) H 05/03/19 17:49 Sodium 134 mEq/L (136-145) L 05/05/19 06:05 Potassium 2.9 mEq/L (3.5-5.1) L 05/03/19 17:49 Chloride 108 mEq/L (98-107) H 05/04/19 05:00 Creatinine 0.56 mg/dL (0.60-1.20) L 05/04/19 05:00 Glucose 106 mg/dL (70-105) H 05/04/19 05:00 Calculated Osmolality 277 (280-300) L 05/05/19 06:05 Calcium 8.4 mg/dL (8.6-10.3) L 05/05/19 06:05 C-Reactive Protein 31 mg/L (Less than 10) H 05/03/19 17:49 Vancomycin Trough 18 mcg/mL (5-10) H 05/07/19 23:00 Alyssa species DNA DETECTED (Not Detect) A 05/06/19 18:04 Gardnerella DNA Probe DETECTED (Not Detect) A 05/06/19 18:04 Consult Discharge Plan - Plan Additional Instructions: Follow up with OBGYN for yearly exam. Referrals: Alyssa Lehman MD [Primary Care Provider] -
[2019-05-08 10:50] VITALS: BP 168/80
--- NOTE | 2019-05-08 12:07 | Discharge Summary ---
Date of Encounter: 05/08/19 Time of Encounter: 10:00 - Discharge Diagnosis (1) Abscess of skin or subcutaneous tissue Priority: Primary Status: Acute Assessment and Plan: 43 year old female with past medical history of IV drug use, hepatitis C who presents the emergency department with complaint of left hand redness and swelling 3-4 days. Patient states that she has had similar symptoms multiple times in the past consistent with cellulitis/abscess formation. Patient states that she was previously struggling with heroin addiction but has been "doing really well "for the last 3 years. She does admit to a relapse on injectable methamphetamine just prior to her symptoms. She states she did inject in her left arm in multiple places. She denies any systemic symptoms including fevers, chills, chest pain, difficulty breathing, streaking, nausea, vomiting. She also denies any urinary or GI symptoms at this time. She states she does have a history of MRSA. She has also required surgery in the past for abscess form ation in her right foot. Most recent episode was approximately one year ago. She was assessed with L hand and arm purulent cellulitis and abscess. CT showing small fluid collection; taken by Ortho Dr Canada to OR 05/06 for I&D/debridement. TTE unremarkable for obvious valvular pathology. Abscess cultures grew MRSA. She also had a left leg wound which was debrided. She was on vancomycin and zosyn in the hospital, and was discharged to complete a course of bactrim. 35 minutes was spent discharging this patient Qualifiers: Site of cutaneous abscess: extremity Site of cutaneous abscess of extremity: axilla Laterality: left Qualified Code(s): L02.412 - Cutaneous abscess of left axilla Hospital course: Ms. Holm is a 43 year old female - Time Spent with Patient Total time spent providing and/or coordinating discharge services: - Discharge Medications Prescriptions: New metroNIDAZOLE [VANDAZOLE 0.75% Vag Gel] 1 appl VG HS 7 Days #1 tube Sulfamethoxazole/Trimeth DS [Bactrim DS] 1 each PO BID 10 Days #20 tablet Continued Ibuprofen [Ibu-200] 600 - 1,000 mg PO DAILY PRN PRN Reason: Headache Home Medications: Ibuprofen [Ibu-200] 600 - 1,000 mg PO DAILY PRN 05/05/19 [History] Sulfamethoxazole/Trimeth DS [Bactrim DS] 1 each PO BID 10 Days #20 tablet 05/08/19 [Rx] metroNIDAZOLE [VANDAZOLE 0.75% Vag Gel] 1 appl VG HS 7 Days #1 tube 05/08/19 [Rx] Allergies/Adverse Reactions: Allergy/AdvReac Type Severity Reaction Status Date / Time No Known Allergies Allergy Verified 05/05/19 12:03 Date of admission: 05/05/19 10:24 Primary care physician: Alyssa Lehman Consults: 05/03/19 20:31 Consult to Orthopedic Surgery [CONS] Stat Consulting Provider: [facility] Reason for Consult: hand abscess Time Notified: 19:40 Call Completed: Yes 05/06/19 09:16 Consult to Invasive Line Access Team [CONS] Routine Reason for Consult: LIMITED VASCULAR ACCESS, POSSIBLE NEED FOR SNF ANTIBIOTIC Line Type: Midline 05/06/19 12:45 Consult to AUDIO VISUAL AIDE [CONS] Routine Consulting Provider: LEADLIGHTER Jeanine Reason for Consult: reports vag discharge and smell, thinks has retained tampon Call Completed: Yes - Constitutional Vitals: Temp Pulse Resp BP Pulse Ox 97.7 F 79 18 168/80 100 05/08/19 10:46 05/08/19 10:46 05/08/19 10:46 05/08/19 10:46 05/08/19 10:46 General appearance: Present: mild distress, A&O X 3 Exam: General: NAD, good eye contact, appears older than stated age Thoracic: Normal breath sounds b/l, no wheezing or crackles Cardio: Normal S1 and S2, regular rate and rhythm, no murmurs Abdomen: Soft, nontender Extremities: Warm, well perfused. DP pulses 2+ b/l. No edema. Skin: LUE erythematous and swollen from base of 5th digit to entire hand and distal forearm, significantly improved. L page wrapped/bandaged Neuro: Awake, fully oriented. Speech fluent - Patient Status Disposition: Home, Self-Care Condition: Good - Discharge Instructions Follow Up With: Tracie Martinez PAC [Physician Portable Irrigation Operator] - 05/15/19 3:00 pm Alyssa Lehman MD [Primary Care Provider] - 05/20/19 3:00 pm Hardeep Howard MD [Partnered Physician] - 05/15/19 1:30 pm Additional Instructions: Follow up with OBGYN for yearly exam - 05/15/19 @ 1:30pm Daily dressing change to left hand and left page. Wash both areas with soap and water. Cover with adaptic. Place a piece of gauze over it. Wrap your leg with kerlix gauze roll and secure with tape. Wrap your hand with kerlix and secure with amry wrap. Finish the entire antibiotic prescription, even if you feel completely better. Go to the nearest emergency room for any new or worsening symptoms.
[2019-05-08] MEDS ORDERED: Aminoglycoside Consult 1 EACH MC ONE (13:49)
== END 2019-05-08 13:50 | disposition home or self-care (01) | DRG 364 ==
LOC: EMEROOARM 16:18 → 3NENU 16:18 → SUATTDRO 21:57 → 3NENU 23:12
PROVIDERS: ADMIT Pediatrics; ATTEND Internal Medicine

== ENCOUNTER 2021-04-10 16:31 | Inpatient (IN) ==
[2021-04-10] MEDS ORDERED: Isovue-370 500 ML BOTTLE IVP ONE (17:04)
[2021-04-10] MEDS ORDERED: 0.9 % Sodium Chloride 1,000 ML IVC SCH (17:15)
[2021-04-10] MEDS ORDERED: Tdap (Boostrix) Vaccine 0.5 ML SYRINGE IM ONE (17:30)
[2021-04-10 18:27] LABS: Basophils % 0.3 %; Eosinophils # 0.5 K/mcL (0.0-0.6); Eosinophils % 4.3 %; Hematocrit 35.2 % (35.3-44.9); Hemoglobin 11.8 g/dL (11.5-15.4); Immature Granulocytes % 0.6 % (0-4); Lymphocytes # 1.5 K/mcL (0.6-4.6); Mean Corpuscular HGB Conc 33.5 g/dL (31.6-35.5); Mean Corpuscular Hemoglobin 32.1 pg (28.0-33.3); Mean Corpuscular Volume 95.7 fL (83.0-100.0); Mean Platelet Volume 9.9 fL (9.4-12.4); Monocytes % 7.8 %; Neutrophils # 9.3 K/mcL (1.6-8.9); Platelet Count 202 K/mcL (140-400); Red Blood Count 3.68 M/mcL (3.82-4.97); Red Cell Distribution Width 12.9 % (11.5-14.5); White Blood Count 12.4 K/mcL (4.3-11.1)
[2021-04-10 18:51] LABS: BUN/Creatinine Ratio 22 (6-26); Blood Urea Nitrogen 12 mg/dL (6-20); Calcium 9.2 mg/dL (8.6-10.3); Carbon Dioxide 26 mEq/L (23-29); Chloride 102 mEq/L (98-107); Glucose 80 mg/dL (70-105); Magnesium 1.5 mg/dL (1.6-2.6); Osmolality,Calculated 289 (280-300); Potassium 3.4 mEq/L (3.5-5.1); Sodium 140 mEq/L (136-145); eGFR For African Americans > 60 (> 60); eGFR For Non-African Americans > 60 (> 60)
[2021-04-10] MEDS ORDERED: Clindamycin 900 MG/50 ML 900 MG/50 ML IV.SOLN IVPB ONE (20:35)
[2021-04-10] MEDS ORDERED: Naloxone 0.4 MG/ML INJ IVP PRN (22:51)
[2021-04-10] MEDS ORDERED: Melatonin 3 MG TABLET PO PRN (22:51)
[2021-04-10] MEDS ORDERED: Ondansetron 4 MG/2 ML VIAL IVP PRN (22:51)
[2021-04-10] MEDS ORDERED: 0.9 % Sodium Chloride 500 ML IVC ONE (22:56)
[2021-04-10] MEDS ORDERED: Acetaminophen 325 MG TABLET PO PRN (22:58)
[2021-04-10] MEDS ORDERED: Ibuprofen 400 MG TABLET PO ONE (23:24)
[2021-04-10] MEDS ORDERED: Ipratropium/Albuterol Neb 3 ML IH PRN (23:29)
[2021-04-11 00:30] LABS: Bilirubin,Urine Negative (Negative); Blood,Urine Negative (Negative); Clarity,Urine Clear (Clear); Color,Urine Colorless (Yellow); Glucose,Urine (UA) Normal (Normal); Ketones,Urine Negative (Negative); Leukocyte Esterase,Urine Trace (Negative); Nitrite,Urine Positive (Negative); PH,Urine 6.5 pH Units (5.0-8.0); Protein,Urine Trace mg/dL (Neg-Trace); RBC,Urine 0-3 per hpf (0-3); Specific Gravity,Urine > 1.030 (1.010-1.025); Squamous Epithelial Cell,Urine Few per hpf (None-Few); Urobilinogen,Urine Normal (Normal)
[2021-04-11] MEDS ORDERED: Fluconazole 150 MG TABLET PO ONE (01:00)
[2021-04-11] MEDS: Piperacillin/Tazobactam 3.375 GM in 0.9 % Sodium Chloride Mini Bag 100 ML IVPB SCH ×3 (01:23→16:07)
[2021-04-11] MEDS ORDERED: Ipratropium Neb 0.5 MG NEBULIZER ONE (01:27)
[2021-04-11] MEDS ORDERED: *HR* Enoxaparin 40 MG/0.4 ML SYRINGE SQ SCH (06:00)
[2021-04-11 07:32] LABS: Basophils % 0.2 %; Eosinophils # 0.5 K/mcL (0.0-0.6); Eosinophils % 5.2 %; Hematocrit 32.7 % (35.3-44.9); Hemoglobin 10.7 g/dL (11.5-15.4); Immature Granulocytes % 0.6 % (0-4); Lymphocytes # 1.5 K/mcL (0.6-4.6); Lymphocytes % 15.5 %; Mean Corpuscular HGB Conc 32.7 g/dL (31.6-35.5); Mean Corpuscular Hemoglobin 31.7 pg (28.0-33.3); Mean Corpuscular Volume 96.7 fL (83.0-100.0); Mean Platelet Volume 10.4 fL (9.4-12.4); Monocytes # 0.8 K/mcL (0.0-1.3); Monocytes % 8.6 %; Neutrophils # 6.7 K/mcL (1.6-8.9); Platelet Count 181 K/mcL (140-400); Red Blood Count 3.38 M/mcL (3.82-4.97); Red Cell Distribution Width 13.2 % (11.5-14.5); Segmented Neutrophils % 69.9 %; White Blood Count 9.5 K/mcL (4.3-11.1)
[2021-04-11 07:54] LABS: BUN/Creatinine Ratio 20 (6-26); Blood Urea Nitrogen 10 mg/dL (6-20); Calcium 7.8 mg/dL (8.6-10.3); Carbon Dioxide 22 mEq/L (23-29); Chloride 108 mEq/L (98-107); Glucose 98 mg/dL (70-105); Osmolality,Calculated 283 (280-300); Potassium 3.4 mEq/L (3.5-5.1); Sodium 137 mEq/L (136-145); eGFR For African Americans > 60 (> 60); eGFR For Non-African Americans > 60 (> 60)
[2021-04-11] MEDS ORDERED: Clindamycin 600 MG/50 ML 600 MG/50 ML IV.SOLN IVPB SCH (08:00)
[2021-04-11] MEDS ORDERED: *HR* OxyCODONE Immed Rel 5 MG TABLET PO PRN (12:25)
[2021-04-11] MEDS ORDERED: *HR* HYDROmorphone PF 0.5 MG/0.5 ML SYRINGE IVP PRN (12:25)
[2021-04-11] MEDS ORDERED: Lidocaine -MPF 2% 2 ML VIAL ONE (12:43)
[2021-04-11] MEDS ORDERED: Ondansetron 4 MG/2 ML VIAL ONE (12:43)
[2021-04-11] MEDS ORDERED: *HR* Midazolam HCl 2 MG/2 ML VIAL ONE (12:44)
[2021-04-11] MEDS ORDERED: *HR* Propofol 200 MG/20 ML VIAL IVP ONE (12:44)
[2021-04-11] MEDS ORDERED: *HR* FentaNYL (PF) 100 MCG/2 ML VIAL ONE ×2 (12:44→13:57)
[2021-04-11] MEDS ORDERED: Naloxone 0.4 MG/ML INJ IVP PRN (15:28)
[2021-04-11] MEDS ORDERED: Melatonin 3 MG TABLET PO PRN (15:28)
[2021-04-11] MEDS ORDERED: Ondansetron 4 MG/2 ML VIAL IVP PRN (15:28)
[2021-04-11] MEDS ORDERED: Ipratropium/Albuterol Neb 3 ML IH PRN (15:28)
[2021-04-11] MEDS: Clindamycin 600 MG/50 ML 600 MG/50 ML IV.SOLN IVPB SCH (16:07)
[2021-04-11] MEDS: Acetaminophen 325 MG TABLET PO PRN (21:53)
[2021-04-12] MEDS ORDERED: Piperacillin/Tazobactam 3.375 GM VIAL ONE (00:14)
[2021-04-12] MEDS: Piperacillin/Tazobactam 3.375 GM in 0.9 % Sodium Chloride Mini Bag 100 ML IVPB SCH ×4 (00:49→23:50)
[2021-04-12] MEDS: Clindamycin 600 MG/50 ML 600 MG/50 ML IV.SOLN IVPB SCH ×2 (00:50→09:06)
[2021-04-12] MEDS: Vancomycin 1,250 MG/262.5 ML IV.SOLN IVPB SCH ×3 (03:16→20:06)
[2021-04-12] MEDS: *HR* Enoxaparin 40 MG/0.4 ML SYRINGE SQ SCH (05:19)
[2021-04-12] MEDS: Acetaminophen 325 MG TABLET PO PRN ×3 (05:20→20:12)
[2021-04-12] MEDS ORDERED: 0.9 % Sodium Chloride 1,000 ML IVC ONE (07:41)
[2021-04-12] MEDS ORDERED: Ketorolac 15 MG/ML VIAL IVP PRN (13:08)
[2021-04-12 14:59] LABS: Hematocrit 31.9 % (35.3-44.9); Hemoglobin 10.7 g/dL (11.5-15.4); Mean Corpuscular HGB Conc 33.5 g/dL (31.6-35.5); Mean Corpuscular Volume 95.5 fL (83.0-100.0); Mean Platelet Volume 11.2 fL (9.4-12.4); Platelet Count 204 K/mcL (140-400); Red Blood Count 3.34 M/mcL (3.82-4.97); Red Cell Distribution Width 13.2 % (11.5-14.5)
[2021-04-13] MEDS: Vancomycin 1,250 MG/262.5 ML IV.SOLN IVPB SCH (02:54)
[2021-04-13 03:12] LABS: BUN/Creatinine Ratio 26 (6-26); Blood Urea Nitrogen 15 mg/dL (6-20); Carbon Dioxide 19 mEq/L (23-29); Chloride 109 mEq/L (98-107); Glucose 90 mg/dL (70-105); Osmolality,Calculated 284 (280-300); Potassium 4.1 mEq/L (3.5-5.1); Sodium 137 mEq/L (136-145); eGFR For African Americans > 60 (> 60); eGFR For Non-African Americans > 60 (> 60)
[2021-04-13] MEDS: *HR* Enoxaparin 40 MG/0.4 ML SYRINGE SQ SCH (05:11)
[2021-04-13] MEDS ORDERED: Simethicone 80 MG TAB.CHEW PO ONE (05:15)
[2021-04-13 06:17] LABS: Hematocrit 32.7 % (35.3-44.9); Hemoglobin 10.9 g/dL (11.5-15.4); Mean Corpuscular HGB Conc 33.3 g/dL (31.6-35.5); Mean Corpuscular Hemoglobin 31.9 pg (28.0-33.3); Mean Corpuscular Volume 95.6 fL (83.0-100.0); Mean Platelet Volume 10.4 fL (9.4-12.4); Platelet Count 211 K/mcL (140-400); Red Blood Count 3.42 M/mcL (3.82-4.97); Red Cell Distribution Width 13.4 % (11.5-14.5); White Blood Count 8.4 K/mcL (4.3-11.1)
[2021-04-13 06:51] VITALS: BP 140/78
[2021-04-13] MEDS: Piperacillin/Tazobactam 3.375 GM in 0.9 % Sodium Chloride Mini Bag 100 ML IVPB SCH (07:38)
== END 2021-04-13 11:17 | disposition home or self-care (01) | DRG 710 ==
LOC: EMEROOARM 16:31 → 3NENU 16:31 → SUATTDRO 22:47
PROVIDERS: ADMIT Internal Medicine; ATTEND Family Medicine